=== PATIENT | female | born 2000 | race Caucasian/White ===

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

== ENCOUNTER → 2021-02-09 15:49 | Outpatient (POV) | payer OTHER, SELFPAY | PROVIDERS: Visit Provider Dermatology | DX: Z00.00 Encounter for general adult medical examination without abnormal findings (principal) ==

== ENCOUNTER 2021-02-12 08:57 | Emergency (ER) | payer OTHER, SELFPAY ==
[2021-02-12 09:01] VITALS: BP 142/73; PULSE 96; RESP 19; TEMP 36.6; O2SAT 99; BMI 28.0
--- NOTE | 2021-02-12 09:12 | HMH.EDUTC ---
[facility] [place] Clinical Impression: Sore throat (viral) Disposition: Home, Self-Care Condition on Discharge: Good Instructions: Sore Throat Additional Instructions: *Monitor Temp, Over the counter Motrin or Tylenol as directed/as needed Tylenol every 4 hours and Motrin every 6 hours (as long as your family doctor has told you that you can take it) for fever or pain. and straight to ER if unable to lower temp less than 101.0 after medication given *Warm salt water gargles may help to soothe the throat *Throat Lozenges *Warm fluids like tea with honey may help to soothe the throat *Sleep elevated *Humidifier/Vaporizer Your throat swab was sent for culture. Those results are typically sent to your primary care. Be sure to follow up in 2-3 days with your family doctor/primary care physician if no improvement so they can review those result and treat if necessary. If you don?t have a primary care doctor, I recommend you get one but in the mean time, you will have to return to a walk in clinic Follow up IMMEDIATELY for new or worsening symptoms or no Noticeable improvement over the next 48-72 hours. 911 for difficulty breathing or swallowing Referrals: Sandra Becker MD [Primary Care Provider] - As needed Forms: Work/School Release Time of Disposition: 09:18 Medical Decision Making - Kin Inquiry Pt receiving controlled substance: No Kin was queried for this patient: No Vital Signs: 02/12/21 09:01 02/12/21 09:13 Temperature 97.8 F 97.8 F Temperature Source Oral Pulse Rate 96 H Pulse Rate [Left] 96 H Respiratory Rate 19 19 Blood Pressure 142/73 H Blood Pressure [Right Arm] 142/73 H Blood Pressure Mean [Right Arm] 96 02 Sat by Pulse Oximetry 99 - Lab Data Lab results reviewed: Yes: I reviewed the patient's lab results. [facility] [place] - General Stated complaint: possible strep Time Seen by Provider: 02/12/21 09:12 Mode of Arrival: Ambulatory Source of Information: Patient Limitations: No Limitations Description of Symptoms (Recalled from Triage Doc. by RN): pt c/o a sore throat since last night. HEENT Symptoms (Recalled from RN notes): Yes (sore throat) Resp Symptoms (Recalled from RN notes): No Skin Symptoms (Recalled from RN notes): No MS Symptoms (Recalled from RN notes): No Functional Status (Recalled from RN notes): na - History of Present Illness Provider Complaint: Patient states that she started having sore throat last night States that feels like she may have strep throat so she came in to get tested denies any fever, chills or body aches - Related Data Home Medications Medication Instructions Recorded Confirmed levocetirizine 5 mg tablet 5 mg PO QHS 09/04/17 03/26/20 Montelukast Sodium [Montelukast 10 mg PO DAILY 09/06/17 03/26/20 10mg Tab] L norgest/E estradiol-E estrad 1 tab PO tab 03/05/20 03/26/20 0.15 mg-30 mcg (84)/10 mcg(7) tabs,3mos Previous Rx's Medication Instructions Recorded Cefdinir [Omnicef 300mg Capsule] 300 mg PO BID #20 cap 11/24/20 predniSONE [Prednisone 20mg 20 mg PO BID 4 Days #8 tab 11/24/20 Tab] Allergies Allergy/AdvReac Type Severity Reaction Status Date / Time No Known Allergies Allergy Verified 11/24/20 20:19 - Worker's Comp Is this a Worker's Comp case?: No [facility] History - Hepatitis A Screen Drug use history?: No High risk sexual behaviors?: No History of sexually transmitted infection?: No Currently employed?: No Childcare worker?: No Do you have indoor plumbing?: Yes Do you have electricity?: Yes Attestation statement:: This patient has been screened for Hepatitis A risk factors. I have reviewed the patient's past medical history: Yes Medical History: Reports:: Gastroesophageal Reflux Disease(GERD) Denies:: Cancer, Diabetes Mellitus Type 1, Diabetes Mellitus Type 2, MRSA, Seizures Other Medical History: Reports: Other. Denies: Blood Transfusion Reaction Laterality Cases: Bilateral: Myringotom
[2021-02-12 09:13] VITALS: BP 142/73; PULSE 96; RESP 19; TEMP 36.6
[2021-02-12 09:17] LABS: UTC Strep Screen (Rapid) Negative (Negative)
== END 2021-02-12 09:28 | disposition home or self-care (01) ==
PROVIDERS: Emergency Provider Nurse Practitioner; PCP Family Medicine
DX: J02.9 Acute pharyngitis, unspecified (principal); K21.9 Gastro-esophageal reflux disease without esophagitis
CPT/HCPCS: 87880; 99202; G0463

== ENCOUNTER → 2021-05-11 15:54 | Outpatient (POV) | payer OTHER, SELFPAY | PROVIDERS: Visit Provider Dermatology | DX: Z00.00 Encounter for general adult medical examination without abnormal findings (principal) ==

== ENCOUNTER 2021-11-11 18:20 | Emergency (ER) | payer OTHER, SELFPAY ==
[2021-11-11 18:25] VITALS: BP 132/93; PULSE 90; RESP 20; TEMP 36.9; O2SAT 100; BMI 31.0
--- NOTE | 2021-11-11 18:40 | HMH.EDUTC ---
[facility] [place] Disposition Clinical Impression: URI (upper respiratory infection) Qualifiers: URI type: unspecified URI Qualified Code(s): J06.9 - Acute upper respiratory infection, unspecified Disposition: Home, Self-Care Condition on Discharge: Good Instructions: Sore Throat, DI for Sinusitis Additional Instructions: *Monitor Temp, Over the counter Motrin or Tylenol as directed/as needed Tylenol every 4 hours and Motrin every 6 hours (as long as your family doctor has told you that you can take it) for fever or pain. and straight to ER if unable to lower temp less than 101.0 after medication given *Warm salt water gargles may help to soothe the throat *Throat Lozenges *Warm fluids like tea with honey may help to soothe the throat *Sleep elevated *Humidifier/Vaporizer *Flonase 2 sprays in each nostril daily but be aware that it may take 2-3 days before you notice improvement *Bromfed may cause drowsiness. Know how it effects you (your child) before driving, caring for small child, or sending your child to school. Not other antihistamines/allergy medications while taking bromfed Your throat swab was sent for culture. Those results are typically sent to your primary care. Be sure to follow up in 2-3 days with your family doctor/primary care physician if no improvement so they can review those result and treat if necessary. If you don?t have a primary care doctor, I recommend you get one but in the mean time, you will have to return to a walk in clinic Follow up IMMEDIATELY for new or worsening symptoms or no Noticeable improvement over the next 48-72 hours. 911 for difficulty breathing or swallowing You were tested for today for COVID19 your test result should be back in the next 24-48 hours, you may Check your results on the [facility] My health portal Make sure to take your Vitamins Vit. C Vit D and Zinc if you can take them Prescriptions: Fluticasone Propionate [Flonase 50mcg nasal spray 16gm] 1 spr NS DAILY #1 each [facility] methylPREDNISolone [Medrol 4mg tab] 4 mg PO DIRECTED #21 tab Transmission Status: [facility] Azithromycin [Z-Benny 250mg Tab] 250 mg PO DIRECTED #6 tab Transmission Status: Pending to [facility] Referrals: Sandra Becker MD [Primary Care Provider] - As needed Forms: Work/School Release Time of Disposition: 19:09 Medical Decision Making - Kin Inquiry Pt receiving controlled substance: No Kin was queried for this patient: No Vital Signs: 11/11/21 18:25 11/11/21 18:49 Temperature 98.4 F 98.4 F Temperature Source Oral Pulse Rate 90 Pulse Rate [Right Brachial] 90 Respiratory Rate 20 20 Blood Pressure 132/93 H Blood Pressure [Right Arm] 132/93 H Blood Pressure Mean [Right Arm] 106 Blood Pressure Source [Right Arm] Automatic Cuff Blood Pressure Position [Right Arm] Sitting 02 Sat by Pulse Oximetry 100 Oxygen Delivery Method Room Air - Lab Data Lab results reviewed: Yes: I reviewed the patient's lab results. Lab Results 11/11/21 18:41: Group A Strep Rapid Negative Orders (Tests/Meds): ORDERS Category Date Time Status Full Resp Panel w/COVID ([facility]) Routine Lab 11/11/21 18:41 Received Strep Screen Confirmation Stat Micro 11/11/21 18:41 Received Medical Decision Narrative: Patient denies [facility] [place] HPI - General Stated complaint: congestion and runny nose Time Seen by Provider: 11/11/21 18:41 Mode of Arrival: Ambulatory Source of Information: Patient Limitations: No Limitations Description of Symptoms (Recalled from Triage Doc. by RN): PATIENT C/O CONGESTION AND HEADACHE SINCE MONDAY HEENT Symptoms (Recalled from RN notes): Yes Resp Symptoms (Recalled from RN notes): No Skin Symptoms (Recalled from RN notes): No MS Symptoms (Recalled from RN notes): No Functional Status (Recalled from RN notes): WNL - History of Present Illness Provider Complaint: Patient states that
[2021-11-11 18:49] VITALS: BP 132/93; PULSE 90; RESP 20; TEMP 36.9; O2SAT 100
[2021-11-11 18:51] LABS: Adenovirus,PCR Not Detected (NotDetected); Bordetella Pertussis Not Detected (NotDetected); Chlamydophila Pneumoniae, PCR Not Detected (NotDetected); Coronavirus 19, PCR Not Detected (NotDetected); Coronavirus 229E Not Detected (NotDetected); Coronavirus NL63 Not Detected (NotDetected); Coronavirus OC43 Not Detected (NotDetected); Coronovirus HKU1,PCR Not Detected (NotDetected); Human Metapneumovirus Not Detected (NotDetected); Influenza A, PCR Not Detected (NotDetected); Influenza AH1, 2009 Not Detected (NotDetected); Influenza AH1, PCR Not Detected (NotDetected); Influenza AH3,PCR Not Detected (NotDetected); Influenza B, PCR Not Detected (NotDetected); Mycoplasma Pneumoniae, PCR Not Detected (NotDetected); Parainfluenza 1, PCR Not Detected (NotDetected); Parainfluenza 2, PCR Not Detected (NotDetected); Parainfluenza 3, PCR Not Detected (NotDetected); Parainfluenza 4, PCR Not Detected (NotDetected); Respiratory Syncytial Virus Not Detected (NotDetected)
[2021-11-11 19:01] LABS: Strep Scrn Group A (Rapid) Negative (Negative)
[2021-11-11 20:22] LABS: Rhinovirus/Enterovirus Detected (NotDetected)
== END 2021-11-11 19:41 | disposition home or self-care (01) ==
PROVIDERS: Emergency Provider Nurse Practitioner; PCP Family Medicine
DX: J06.9 Acute upper respiratory infection, unspecified (principal); B34.8 Other viral infections of unspecified site
CPT/HCPCS: 87430; 87581; 87632; 87798; 99212; C9803; G0463; U0003; U0005

== ENCOUNTER → 2022-06-17 14:57 | Outpatient (CLI) | payer OTHER, SELFPAY ==
--- NOTE | 2022-06-17 15:02 | CA_ITS ---
APPROVED REPORT EXAM: Comprehensive 2D, Doppler, and color-flow Echocardiogram Chief Informatics Officer: Maria Alejandra Valdovinos CRT Ht: 5 ft 9 in Wt: 170lbs BSA: 1.93 BP: 132/93 mmHg Indications: Chest Pain, Shortness of Breath, Fatigue, Peripheral Edema 2D Dimensions LVOT 2.08 cm (M/F) 1.5-2.5 LA Volume 33.60 mL LA Volume Index 17.10 mL/m2 (M/F) 16-34 M-Mode Dimensions RVDd 2.97 cm (0.9-2.6) LA Diam 3.45 cm (1.9-4.0) LVDd 4.06 cm (3.5-5.7) Ao Diam 3.01 cm (2.0-3.7) LVDs 2.81 cm (3.5-5.7) IVSd 1.01 cm (0.6-1.1) PWd 0.69 cm (0.6-1.1) EF (Teich) 58.90% FS 30.80% EDV (Teich) 72.50 mL TAPSE 2.33 (<1.7) ESV (Teich) 29.80 mL LV Diastology E Decel Time 323.00 (160-240 msec) E/A Ratio 1.38 MED E' 12.20 (< 7 cm/sec) MED A' 9.60 cm/s E'/MED E' Ratio 7.29 (>14) LAT E' 20.00 (<10 cm/sec) LAT A' 12.70 cm/s E/LAT E' Ratio 4.45 (>14) Aortic Valve AO Peak GR. 10.20 mmHg Mitral Valve MV A Velocity 64.00 (40-130 cm/s) E/A Ratio 1.38 MV Decel. Time 323.00 (160-240 ms) Pulmonary Valve PV Peak Velocity 178.00 (50-150 cm/s) Tricuspid Valve TR P. Velocity 240.00 cm/s RAP Estimate 10.00 mmHg RVSP 33.10 mmHg Left Ventricle Left atrium is normal size, left ventricle is normal size, there is preserved left ventricular systolic function, estimated ejection fraction 55% with no regional wall motion abnormality, diastolic parameters are within normal range. Right Ventricle Right atrium and right ventricle are normal size and contractility. Aortic Valve Aortic valve is grossly normal there is no aortic stenosis aortic insufficiency. Mitral Valve Mitral valve is grossly normal, there is no mitral regurgitation. Tricuspid Valve Tricuspid valve grossly normal, there is no tricuspid regurgitation. Pulmonic Valve Pulmonic valve is poorly visualized. Great Vessels Aortic root is normal size. Inferior vena cava is normal size with normal inspiratory collapse. Pericardium No significant pericardial effusion noted. Conclusion 1. Normal left ventricular size preserved left ventricular systolic function, estimated ejection fraction 55% with no regional wall motion abnormality, diastolic parameters are within normal range. 2. No significant pericardial effusion noted. 3. Inferior vena cava is normal size with normal inspiratory collapse. Electronically signed by : Diaz Marcelo MD 06/17/2022 16:03:04
== END ==
PROVIDERS: PCP Family Medicine; Visit Provider Family Medicine
DX: R53.82 Chronic fatigue, unspecified (principal)
CPT/HCPCS: 93306

== ENCOUNTER 2022-07-11 08:00 | Emergency (ER) | payer OTHER, SELFPAY ==
[2022-07-11 08:05] VITALS: BP 131/79; PULSE 82; RESP 20; TEMP 36.6; O2SAT 100; BMI 25.8
--- NOTE | 2022-07-11 08:15 | EXP.UTC ---
Discharge Plan Disposition Patient Disposition: Home, Self-Care Condition: Good Prescriptions Prescriptions: New penicillin V potassium 500 mg tablet 500 mg PO BID 10 Days Qty: 20 0RF No Action Radha 30 mg Tablet 180 mg PO DAILY drospirenone-ethinyl estradiol 3-0.03 mg tablet 1 tab PO DAILY Label Comments: TAKE 1 TABLET BY MOUTH ONCE DAILY Referrals Follow up/Referrals: Sandra Becker MD [Primary Care Provider] - See instructions Activity Restrictions/Add. Instructions Additional Instructions/Restrictions: *Monitor Temp, Over the counter Motrin or Tylenol as directed/as needed Tylenol every 4 hours and Motrin every 6 hours (as long as your family doctor has told you that you can take it) for fever or pain. and straight to ER if unable to lower temp less than 101.0 after medication given *Warm salt water gargles may help to soothe the throat *Throat Lozenges? *Warm fluids like tea with honey may help to soothe the throat? *Sleep elevated *Humidifier/Vaporizer Your throat swab was sent for culture. Those results are typically sent to your primary care. Be sure to follow up in 2-3 days with your family doctor/primary care physician if no improvement so they can review those result and treat if necessary. If you don?t have a primary care doctor, I recommend you get one but in the mean time, you will have to return to a walk in clinic Follow up IMMEDIATELY for new or worsening symptoms or no Noticeable improvement over the next 48-72 hours. 911 for difficulty breathing or swallowing Clinical Impressions Clinical Impression: Strep throat Instructions Patient Instructions: DI for Strep Throat, Strep Throat Discharge ED Provider: [place]ja Rae [facility] [place] Stated complaint: sore throat Mode of Arrival: Ambulatory Source of Information: Patient Limitations: No Limitations Time Seen by Provider: 07/11/22 08:15 Description of Symptoms (Recalled from Triage Doc. 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 sure she didnt have strep throat or something so she came in Related Data Home Medications Medication Instructions Recorded Confirmed drospirenone 3 mg-ethinyl 1 tab PO DAILY control 07/11/22 07/11/22 estradiol 0.03 mg tablet fexofenadine 30 mg tablet 180 mg PO DAILY Allergy symptoms 07/11/22 07/11/22 Previous Rx's Medication Instructions Recorded penicillin V potassium 500 mg 500 mg PO BID 10 days #20 tabs 07/11/22 tablet Allergies Allergy/AdvReac Type Severity Reaction Status Date / Time No Known Allergies Allergy Verified 11/24/20 20:19 Worker's Comp Is this a Worker's Comp case?: No PF[facility] [place] Disclaimer: The information contained in this section may have been updated after the patient was seen, as this information can be updated by other users. Social History Smoking Status: Never smoker alcohol intake: never counseling provided: none substance use type: denies use current occupational status: student Travel in the last 8 weeks: None housing: house ROS Obtained: Yes All systems reviewed & no additional complaints except as documented and Yes Systems reviewed as appropriate & no additional complaints except as documented Constitutional Constitutional: Reports system reviewed and no additional complaints, except as documented and Reports as per HPI ENT Ears, Nose, Mouth, and Throat: Reports system reviewed and no additional complaints, except as documented, Reports as per HPI and Reports sore throat [facility]
[2022-07-11 08:17] VITALS: BP 131/79; PULSE 82; RESP 20; TEMP 36.6; O2SAT 100
[2022-07-11 08:19] LABS: UTC Strep Screen (Rapid) Positive (Negative)
== END 2022-07-11 08:20 | disposition home or self-care (01) ==
PROVIDERS: Emergency Provider Nurse Practitioner; PCP Family Medicine
DX: J02.0 Streptococcal pharyngitis (principal)
CPT/HCPCS: 87880; 99212; 99213; G0463

== ENCOUNTER 2022-09-18 12:35 | Emergency (ER) | payer OTHER, SELFPAY ==
[2022-09-18 12:46] VITALS: BP 124/79; PULSE 75; RESP 18; TEMP 36.4; O2SAT 100; BMI 28.5
--- NOTE | 2022-09-18 13:28 | EXP.UTC ---
Discharge Plan Disposition Patient Disposition: Home, Self-Care Condition: Good Prescriptions Prescriptions: New azithromycin [azithromycin] 250 mg tablet 250 mg PO DIRECTED Qty: 6 0RF Rx Instructions: Take two (2) tablets on day #1, then one (1) tablet day #2 thru #5 fluticasone propionate [fluticasone propionate] 50 mcg/actuation spray,suspension 1 spray intranasal DAILY Qty: 9.9 0RF No Action Radha 30 mg Tablet 180 mg PO DAILY drospirenone-ethinyl estradiol 3-0.03 mg tablet 1 tab PO DAILY Label Comments: TAKE 1 TABLET BY MOUTH ONCE DAILY penicillin V potassium 500 mg tablet 500 mg PO BID 10 Days Qty: 20 0RF Referrals Follow up/Referrals: Sandra Becker MD [Primary Care Provider] - See instructions Activity Restrictions/Add. Instructions Additional Instructions/Restrictions: Start antibiotic patient to take as ordered for a full length of time even if you feel better. Sinus infections do not get better overnight. It may take 2-3 days to notice much improvement so be sure to use conservative measures as discussed for symptoms. Flonase 1 spray each nostril daily to help with nasal congestion, sinus and ear pressure/information Increase fluids Humidifier/vaporizer as needed Tylenol and ibuprofen as needed for fever or pain. If symptoms do not improve or get worse return or be seen in the ER Follow-up with primary care this week Clinical Impressions Clinical Impression: Sinusitis Instructions Patient Instructions: DI for Sinusitis Discharge ED Provider: Vania ([facility])Jason [facility] [place] H[place] General Stated complaint: Congestion Mode of Arrival: Ambulatory Source of Information: Patient Limitations: No Limitations Time Seen by Provider: 09/18/22 13:28 Description of Symptoms (Recalled from Triage Doc. by RN): pt c/o sinus pressure and congestion x4d HEENT Symptoms (Recalled from RN notes): Yes Resp Symptoms (Recalled from RN notes): No Skin Symptoms (Recalled from RN notes): No MS Symptoms (Recalled from RN notes): No Functional Status (Recalled from RN notes): wnl History of Present Illness Provider Complaint: 22 yr old female presents for sinus pressure, sinus pain, green nasal drainage and sore throat for 4 days and getting worse Related Data Home Medications Medication Instructions Recorded Confirmed drospirenone 3 mg-ethinyl 1 tab PO DAILY control 07/11/22 07/11/22 estradiol 0.03 mg tablet fexofenadine 30 mg tablet 180 mg PO DAILY Allergy symptoms 07/11/22 07/11/22 Previous Rx's Medication Instructions Recorded penicillin V potassium 500 mg 500 mg PO BID 10 days #20 tabs 07/11/22 tablet azithromycin 250 mg tablet 250 mg PO DIRECTED #6 tabs 09/18/22 fluticasone propionate 50 1 spray intranasal DAILY #9.9 mL 09/18/22 mcg/actuation nasal spray,suspension Allergies Allergy/AdvReac Type Severity Reaction Status Date / Time No Known Allergies Allergy Verified 09/18/22 12:49 Worker's Comp Is this a Worker's Comp case?: No [facility] Disclaimer: The information contained in this section may have been updated after the patient was seen, as this information can be updated by other users. Social History , [employer]) Smoking Status: Never smoker alcohol intake: never counseling provided: none substance use type: denies use current occupational status: student Travel in the last 8 weeks: None housing: house ROS Obtained: Yes All systems reviewed & no additional complaints except as documented Constitutional Constitutional: Reports system reviewed and no additional complaints, except as documented, Reports as per HPI and Reports headache(s) Eyes Eyes: Reports system reviewed and no additional complaints, except as documented ENT Ears, Nose, Mouth, and Throat: Reports system reviewed and no additional complaints, except as documented, Reports as per HPI, Reports f
[2022-09-18 13:42] VITALS: BP 124/79; PULSE 75; RESP 18; TEMP 36.4
== END 2022-09-18 13:43 | disposition home or self-care (01) ==
PROVIDERS: Emergency Provider Nurse Practitioner Family; PCP Family Medicine
DX: J01.90 Acute sinusitis, unspecified (principal); R07.0 Pain in throat
CPT/HCPCS: 99212; 99214; G0463

== ENCOUNTER 2023-02-15 08:01 | Emergency (ER) | payer OTHER, SELFPAY ==
[2023-02-15 08:10] VITALS: BP 139/71; PULSE 84; RESP 20; TEMP 36.6; O2SAT 97; BMI 31.1
--- NOTE | 2023-02-15 08:19 | EXP.UTC ---
Discharge Plan Disposition Patient Disposition: Home, Self-Care Condition: Good Prescriptions Prescriptions: New methylprednisolone [Medrol (Benny)] 4 mg tablets,dose pack See Rx Instructions .Route .COMPLEX 6 Days Qty: 21 0RF Rx Instructions: taper pack; amoxicillin-pot clavulanate 875-125 mg Tablet 1 tab PO Q12H Qty: 20 0RF fluticasone propionate [Flonase Allergy Relief] 50 mcg/actuation spray,suspension 1 - 2 spray intranasal DAILY Qty: 16 0RF Rx Instructions: administer into each nostril daily Referrals Follow up/Referrals: Sandra Becker MD [Primary Care Provider] - See instructions Activity Restrictions/Add. Instructions Additional Instructions/Restrictions: *Monitor Temp, Over the counter Motrin or Tylenol as directed/as needed Tylenol every 4 hours and Motrin every 6 hours (as long as your family doctor has told you that you can take it) for fever or pain. and straight to ER if unable to lower temp less than 101.0 after medication given *Warm salt water gargles may help to soothe the throat *Throat Lozenges? *Warm fluids like tea with honey may help to soothe the throat? *Sleep elevated *Humidifier/Vaporizer *Flonase 2 sprays in each nostril daily but be aware that it may take 2-3 days before you notice improvement Take medication as prescribed Follow up IMMEDIATELY for new or worsening symptoms or no Noticeable improvement over the next 48-72 hours. 911 for difficulty breathing or swallowing Clinical Impressions Clinical Impression: Sinusitis Instructions Patient Instructions: DI for Sinusitis, Sinusitis Discharge ED Provider: Nadja Rae [facility] [place] HPI General Stated complaint: congestion,runny nose Mode of Arrival: Ambulatory Source of Information: Patient Limitations: No Limitations Time Seen by Provider: 02/15/23 08:19 Description of Symptoms (Recalled from Triage Doc. by RN): PATIENT C/O SINUS CONGESTION X 2 WEEKS HEENT Symptoms (Recalled from RN notes): Yes Resp Symptoms (Recalled from RN notes): No Skin Symptoms (Recalled from RN notes): No MS Symptoms (Recalled from RN notes): No Functional Status (Recalled from RN notes): WNL History of Present Illness Provider Complaint: Patient states that she has been having sinus issues for 2 weeks States that she has been having sinus pain and pressure, and pressure behind her eyes States that she has taken several OTC medications but nothing has helped so today she came in thinking she may need some antibiotics for it Related Data Previous Rx's Medication Instructions Recorded amoxicillin 875 mg-potassium 1 tab PO Q12H #20 tabs 02/15/23 clavulanate 125 mg tablet fluticasone propionate 50 1 - 2 spray intranasal DAILY #16 02/15/23 mcg/actuation nasal grams spray,suspension (Flonase Allergy Relief) methylprednisolone 4 mg tablets in See Rx Instructions .Route 02/15/23 a dose pack (Medrol (Benny)) .COMPLEX 6 days #21 tabs Allergies Allergy/AdvReac Type Severity Reaction Status Date / Time No Known Allergies Allergy Verified 09/18/22 12:49 Worker's Comp Is this a Worker's Comp case?: No PFSH PFS Disclaimer: The information contained in this section may have been updated after the patient was seen, as this information can be updated by other users. 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
[2023-02-15 08:23] VITALS: BP 139/71; PULSE 84; RESP 20; TEMP 36.6; O2SAT 97
== END 2023-02-15 08:25 | disposition home or self-care (01) ==
PROVIDERS: Emergency Provider Nurse Practitioner; PCP Family Medicine
DX: J01.90 Acute sinusitis, unspecified (principal)
CPT/HCPCS: 99212; 99214; G0463

== ENCOUNTER 2023-07-01 05:33 | Emergency (ER) | payer OTHER, SELFPAY ==
[2023-07-01 05:34] VITALS: BP 124/75; PULSE 104; RESP 18; TEMP 36.8; O2SAT 98; BMI 32.5
[2023-07-01 06:00] VITALS: BP 113/73; PULSE 95; O2SAT 99
[2023-07-01] MEDS: LACTATED RINGERS 1000ML 1,000 ML 999 ML IV (06:06)
[2023-07-01] MEDS: ONDANSETRON 4MG/2ML VIAL 4 MG IV (06:06)
--- NOTE | 2023-07-01 06:17 | ED_ITS ---
Discharge Plan Disposition Patient Disposition: Home, Self-Care Prescriptions Prescriptions: New ondansetron HCl 4 mg tablet 4 mg PO Q8H PRN (Reason: nausea and vomiting) 5 Days Qty: 30 0RF No Action norelgestromin-ethin.estradiol [Zafemy] 150-35 mcg/24 hr patch weekly 1 patch transdermal WEEKLY Patient Comments: DIRECTED TRANSDERMALLY ONE PATCH PER WEEK FOR 3 WEEKS THEN 1 WEEK OFF Referrals Follow up/Referrals: Sandra Becker MD [Primary Care Provider] - See instructions Activity Restrictions/Add. Instructions Additional Instructions/Restrictions: Please follow-up with your primary care provider. Please return to the emergency department if you develop any new or worsening symptoms or become concerned for your health. Please take Zofran as needed for nausea and vomiting. Clinical Impressions Clinical Impression: Vomiting Qualifiers: Vomiting type: unspecified Nausea presence: unspecified Qualified Code(s): R11.10 - Vomiting, unspecified Instructions Patient Instructions: DI for Diarrhea and Traveler's Diarrhea -- Adult, DI for Diarrhea and Traveler's Diarrhea -- Child, DI for Nausea -- Adult, DI for Nausea -- Child Discharge ED Provider: Mike Pereira General Adult HPI General Chief complaint: Nausea/Vomiting/Diarrhea Stated complaint: vomiting, stomach pain Time Seen by Provider: 07/01/23 06:01 Mode of Arrival: Ambulatory Source of Information: Patient and Parent(s) Limitations: No Limitations Description of Symptoms (Recalled from ER Triage Doc. by RN): Patient and mother state that patient has been vomiting since 1900 last night. No ABD pain or other symptoms. History of Present Illness HPI narrative: 22-year-old female with no reported past medical history presents with nausea vomiting since last night. She reports that she felt well yesterday and has not been sick recently. She denies any fever. She denies any abdominal pain. She reports that she has having normal bowel movements. She reports that she has a control patch and is currently on her menstrual cycle and states there is no way she could be . Related Data Home Medications Medication Instructions Recorded Confirmed norelgestromin 150 mcg-e.estradiol 1 patch transdermal WEEKLY 07/01/23 07/01/23 35 mcg/24 hr weekly transderm patch (Zafemy) Previous Rx's Medication Instructions Recorded ondansetron HCl 4 mg tablet 4 mg PO Q8H PRN nausea and 07/01/23 vomiting 5 days #30 tabs Allergies Allergy/AdvReac Type Severity Reaction Status Date / Time No Known Allergies Allergy Verified 09/18/22 12:49 [facility] Dis[facility]: The information contained in this section may have been updated after the patient was seen, as this information can be updated by other users. Social History (Reviewed 09/18/22 @ 13:31 by Jason Caro ([facility]), [employer]) Smoking Status: Never smoker alcohol intake: never counseling provided: none substance use type: denies use current occupational status: student Travel in the last 8 weeks: None housing: house ROS Obtained: Yes All systems reviewed & no additional complaints except as documented Physical Exam General General appearance: alert and in no apparent distress Head Head exam: atraumatic and normocephalic Eye Eye exam: Present normal appearance, PERRL and EOMI ENT ENT exam: Present normal oropharynx and normal external ear exam Neck Neck exam: Present normal inspection and full ROM Chest Chest inspection: Present normal inspection and symmetric chest wall rise; Absent tenderness Respiratory Respiratory exam: Present normal lung sounds bilaterally; Absent respiratory distress Cardiovascular Cardiovascular exam: Present regular rate and normal rhythm Abdominal Exam Abdominal exam: Present soft; Absent distention, tenderness or guarding Extremities Exam Extremities exam: Present normal inspection; Absent edema or joint swelling Back Exam Back exam: Present normal inspection; Absent tenderness Neurological Exam Neurological exam: Present alert and oriented X3; Absent motor sensory deficit Psychiatric Psychiatric exam: Present normal affect and normal mood Skin Skin exam: Present warm, dry and normal color Lymphatic Lymphatic Findings: no adenopathy Medical Decision Making Medical Records Medical records reviewed: Yes I reviewed the patient's medical records. Kin Inquiry Pt receiving controlled substance: No Kin was queried for this patient: No Vital Signs: 07/01/23 05:34 07/01/23 06:00 Temperature 98.2 F Temperature Source Oral Pulse Rate 95 H Pulse Rate [Radial] 104 H Respiratory Rate 18 Blood Pressure 113/73 Blood Pressure [Left Arm] 124/75 Blood Pressure Mean [Left Arm] 91 Blood Pressure Source [Left Arm] Automatic Cuff Blood Pressure Position [Left Arm] Sitting 02 Sat by Pulse Oximetry 98 99 Oxygen Delivery Method Room Air Room Air Lab Data Lab results reviewed: Yes I reviewed the patient's lab results. Orders (Tests/Meds): ED MEDICATIONS Generic Name Dose Route Start Last Admin Trade Name Freq PRN Reason Stop Dose Admin Lactated Ringer's 1,000 mls @ 999 mls/hr 07/01/23 06:15 07/01/23 06:06 Lactated Ringer's 1000 Ml Bag IV 07/01/23 07:15 999 mls/hr .Q1H1M NORRIS Administration Discontinued Medications Generic Name Dose Route Start Last Admin Trade Name Freq PRN Reason Stop Dose Admin Ondansetron HCl 4 mg 07/01/23 06:01 07/01/23 06:06 Ondansetron 4mg/2ml Vial IV 07/01/23 06:02 4 mg ONCE ONE Administration Medical Decision Narrative: 22-year-old female with no significant past medical history presents with vomiting since yesterday.. History was obtained via conversation with patient. On arrival, patient is [afebrile, hemodynamically stable, satting appropriately, alert, oriented x4, GCS 15], moving all extremities spontaneously. Full physical exam performed and significant for benign abdominal exam without tenderness. Differential includes but is not limited to gastroenteritis, food poisoning, influenza, dehydration, pancreatitis, biliary pathology, . Patient reports that she is currently on her menstrual cycle, is on control and there is no chance she could be . Patient was given 4 mg of IV Zofran and 1 L fluid bolus for symptomatic management and correction of underlying abnormalities. Blood work and CT imaging was considered, but deemed unnecessary due to benign exam, brief history of vomiting. After IV fluids and Zofran patient reported symptomatic improvement. She is able to tolerate fluids in ED and was discharged in stable condition with prescription for zofran. Procedures Risk/Benefits of Procedure(s) Were Explained: Yes Critical Care Critical Care Time Critical Care Time: No
[2023-07-01 06:50] VITALS: BP 108/72; PULSE 75; RESP 16; TEMP 36.8; O2SAT 100
== END 2023-07-01 06:52 | disposition home or self-care (01) ==
PROVIDERS: Emergency Provider Emergency Medicine; PCP Family Medicine
DX: R11.2 Nausea with vomiting, unspecified (principal)
CPT/HCPCS: 96361; 96374; 99284; J2405

== ENCOUNTER 2023-07-28 07:59 | Emergency (ER) | payer OTHER, SELFPAY ==
[2023-07-28 08:15] VITALS: BP 119/92; PULSE 102; RESP 19; TEMP 37.1; O2SAT 97; BMI 34.2
[2023-07-28 08:45] LABS: UTC Strep Screen (Rapid) Negative (Negative)
--- NOTE | 2023-07-28 08:51 | ED_ITS ---
Discharge Plan Disposition Patient Disposition: Home, Self-Care Condition: Good Prescriptions Prescriptions: New methylprednisolone [Medrol (Benny)] 4 mg tablets,dose pack See Rx Instructions .Route .COMPLEX 6 Days Qty: 21 0RF Rx Instructions: taper pack; amoxicillin-pot clavulanate 875-125 mg Tablet 1 tab PO Q12H 10 Days Qty: 20 0RF guaifenesin [Mucinex] 600 mg tablet extended release 12hr 1,200 mg PO BID PRN (Reason: cough) Qty: 20 0RF No Action norelgestromin-ethin.estradiol [Zafemy] 150-35 mcg/24 hr patch weekly 1 patch transdermal WEEKLY Patient Comments: DIRECTED TRANSDERMALLY ONE PATCH PER WEEK FOR 3 WEEKS THEN 1 WEEK OFF ondansetron HCl 4 mg tablet 4 mg PO Q8H PRN (Reason: nausea and vomiting) 5 Days Qty: 30 0RF Referrals Follow up/Referrals: Sandra Becker MD [Primary Care Provider] - See instructions Activity Restrictions/Add. Instructions Additional Instructions/Restrictions: *Monitor Temp, Over the counter Motrin or Tylenol as directed/as needed Tylenol every 4 hours and Motrin every 6 hours (as long as your family doctor has told you that you can take it) for fever or pain. and straight to ER if unable to lower temp less than 101.0 after medication given *Warm salt water gargles may help to soothe the throat *Throat Lozenges? *Warm fluids like tea with honey may help to soothe the throat? *Sleep elevated *Humidifier/Vaporizer Your throat swab was sent for culture. Those results are typically sent to your primary care. Be sure to follow up in 2-3 days with your family doctor/ primary care physician if no improvement so they can review those result and treat if necessary. If you don?t have a primary care doctor, I recommend you get one but in the mean time, you will have to return to a walk in clinic Follow up IMMEDIATELY for new or worsening symptoms or no Noticeable improvement over the next 48-72 hours. 911 for difficulty breathing or swallowing Clinical Impressions Clinical Impression: Sinusitis Instructions Patient Instructions: DI for Sinusitis, Sinusitis Discharge ED Provider: Nadja Rae [facility] [place] HPI General Stated complaint: congestion, pain in face Mode of Arrival: Ambulatory Source of Information: Patient Limitations: No Limitations Time Seen by Provider: 07/28/23 08:51 Description of Symptoms (Recalled from Triage Doc. by RN): PATIENT C/O SORE THROAT AND HEAD/CHEST CONGESTION X 3 DAYS HEENT Symptoms (Recalled from RN notes): Yes Resp Symptoms (Recalled from RN notes): No Skin Symptoms (Recalled from RN notes): No MS Symptoms (Recalled from RN notes): No Functional Status (Recalled from RN notes): WNL History of Present Illness Provider Complaint: Patient states that she has been having sinus pain and p ressure with drainage in the back of her throat that is making her throat feel sore and irritated and feels like it is moving into her chest and she is starting to cough up some thick mucous States that for the last 3 days it has got worse Related Data Home Medications Medication Instructions Recorded Confirmed norelgestromin 150 mcg-e.estradiol 1 patch transdermal WEEKLY 07/01/23 07/01/23 35 mcg/24 hr weekly transderm patch (Zafemy) Previous Rx's Medication Instructions Recorded ondansetron HCl 4 mg tablet 4 mg PO Q8H PRN nausea and 07/01/23 vomiting 5 days #30 tabs amoxicillin 875 mg-potassium 1 tab PO Q12H 10 days #20 tabs 07/28/23 clavulanate 125 mg tablet guaifenesin 600 mg tablet, 1,200 mg (2 x 600 mg) PO BID PRN 07/28/23 extended release 12 hr (Mucinex) cough #20 tabs methylprednisolone 4 mg tablets in See Rx Instructions .Route 07/28/23 a dose pack (Medrol (Benny)) .COMPLEX 6 days #21 tabs Allergies Allergy/AdvReac Type Severity Reaction Status Date / Time No Known Allergies Allergy Verified 09/18/22 12:49 Worker's Comp Is this a Worker's Comp case?: No [facility] Disclaimer: The information contained in this section may have been updated after the patient was seen, as this information can be updated by other users. 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 alcohol intake: never counseling provided: none substance use type: denies use current occupational status: student Travel in the last 8 weeks: None housing: house ROS Obtained: Yes All systems reviewed & no additional complaints except as documented and Yes Systems reviewed as appropriate & no additional complaints except as documented Constitutional Constitutional: Reports system reviewed and no additional complaints, except as documented and Reports as per HPI Eyes Eyes: Reports system reviewed and no additional complaints, except as documented and Reports as per HPI ENT Ears, Nose, Mouth, and Throat: Reports system reviewed and no additional complaints, except as documented, Reports as per HPI, Reports sinus pain, Reports sinus pressure and Reports sore throat Cardiovascular Cardiovascular: Reports system reviewed and no additional complaints, except as documented and Reports as per HPI Respiratory Respiratory: Reports system reviewed and no additional complaints, except as documented, Reports as per HPI, Reports chest congestion and Reports cough Gastrointestinal Gastrointestingal: Reports system reviewed and no additional complaints, except as documented and as per HPI Physical Exam General General appearance: alert and in no apparent distress ENT ENT exam: Present mucous membranes moist Expanded ENT Exam Nose exam: Present sinus tenderness Throat exam: Present other (Pharyngeal erythema noted with PND) Respiratory Respiratory exam: Present normal lung sounds bilaterally; Absent respiratory distress or wheezes Cardiovascular Cardiovascular exam: Present regular rate, normal rhythm and normal heart sounds Abdominal Exam Abdominal exam: Present soft and normal bowel sounds; Absent distention or tenderness Neurological Exam Neurological exam: Present alert, oriented X3 and normal gait Medical Decision Making Kin Inquiry Pt receiving controlled substance: No Kin was queried for this patient: No Vital Signs: 07/28/23 08:15 Temperature 98.8 F Temperature Source Oral Pulse Rate [Left Brachial] 102 H Respiratory Rate 19 Blood Pressure [Left Arm] 119/92 H Blood Pressure Mean [Left Arm] 101 Blood Pressure Source [Left Arm] Automatic Cuff Blood Pressure Position [Left Arm] Sitting 02 Sat by Pulse Oximetry 97 Oxygen Delivery Method Room Air Lab Data Lab results reviewed: Yes I reviewed the patient's lab results. Lab Results 07/28/23 08:39: Strep Scn Rapid Clinic Negative Orders (Tests/Meds): ORDERS Category Date Time Status Strep Screen Confirmation Stat Micro 07/28/23 08:39 Received
[2023-07-28 09:08] VITALS: BP 119/92; PULSE 102; RESP 19; TEMP 37.1; O2SAT 97
== END 2023-07-28 09:10 | disposition home or self-care (01) ==
PROVIDERS: Emergency Provider Nurse Practitioner; PCP Family Medicine
DX: J01.90 Acute sinusitis, unspecified (principal); J02.9 Acute pharyngitis, unspecified; R05.9 Cough, unspecified
CPT/HCPCS: 87880; 99212; 99214; G0463

== ENCOUNTER 2023-11-22 19:33 | Emergency (ER) | payer OTHER, SELFPAY ==
[2023-11-22 19:35] VITALS: BP 141/83; PULSE 108; RESP 20; TEMP 36.6; O2SAT 97; BMI 29.5
--- NOTE | 2023-11-22 19:48 | HMH.EDGENADL ---
Discharge Plan Disposition Patient Disposition: Home, Self-Care Chief Complaint: Fever Prescriptions Prescriptions: No Action methylprednisolone [Medrol (Benny)] 4 mg tablets,dose pack See Rx Instructions .Route .COMPLEX 6 Days Qty: 21 0RF Rx Instructions: taper pack; amoxicillin-pot clavulanate 875-125 mg Tablet 1 tab PO Q12H 10 Days Qty: 20 0RF guaifenesin [Mucinex] 600 mg tablet extended release 12hr 1,200 mg PO BID PRN (Reason: cough) Qty: 20 0RF norelgestromin-ethin.estradiol [Zafemy] 150-35 mcg/24 hr patch weekly 1 patch transdermal WEEKLY Patient Comments: DIRECTED TRANSDERMALLY ONE PATCH PER WEEK FOR 3 WEEKS THEN 1 WEEK OFF ondansetron HCl 4 mg tablet 4 mg PO Q8H PRN (Reason: nausea and vomiting) 5 Days Qty: 30 0RF Referrals Follow up/Referrals: Sandra Becker MD [Primary Care Provider] - See instructions Activity Restrictions/Add. Instructions Additional Instructions/Restrictions: Call your family doctor to establish care for this visit to the emergency department and schedule follow-up within 48 hours to ensure improvement. If you have any worsening of your condition or any other concerning signs or symptoms, return to the emergency department or your primary care doctor for further evaluation. Take Tylenol 1000 mg every 6 hours (4 times daily) and ibuprofen 400 mg every 6 hours (4 times daily) as needed with food and water to prevent GI upset and kidney damage. You will be contacted if Lyme disease labs come back positive. Clinical Impressions Clinical Impression: Cough, Headache Discharge ED Provider: Yash Morley General Adult HPI General Chief complaint: Fever Stated complaint: fever, GOMEZ, alexandra Time Seen by Provider: 11/22/23 19:35 Mode of Arrival: Ambulatory Source of Information: Patient Limitations: No Limitations Description of Symptoms (Recalled from ER Triage Doc. by RN): pt began running a fever today with a headache and then noticed a higher than normal heart rate, pt is alox4 and appropriate upon triage History of Present Illness HPI narrative: Please note that above description of symptoms, in this electronic medical record under categorization of recalled from ER triage doctor by RN are reflective of an initial nursing assessment, however, is not reflective of my full history and physical exam that was personally taken and clarified. Consequentially, this preceding description of symptoms, which may include the patient's categorized chief complaint in the EMR, do not reflect my personal clinical impression, and the ultimate description of history of present illness and patient stated complaints should be deferred to this section of the note. Unless stated otherwise or congruent with this section of the note, additional signs, symptoms, or incongruence should be interpreted as inaccurate with my clinical impression. Related Data Home Medications Medication Instructions Recorded Confirmed norelgestromin 150 mcg-e.estradiol 1 patch transdermal WEEKLY 07/01/23 07/01/23 35 mcg/24 hr weekly transderm patch (Zafemy) Previous Rx's Medication Instructions Recorded ondansetron HCl 4 mg tablet 4 mg PO Q8H PRN nausea and 07/01/23 vomiting 5 days #30 tabs amoxicillin 875 mg-potassium 1 tab PO Q12H 10 days #20 tabs 07/28/23 clavulanate 125 mg tablet guaifenesin 600 mg tablet, 1,200 mg (2 x 600 mg) PO BID PRN 07/28/23 extended release 12 hr (Mucinex) cough #20 tabs methylprednisolone 4 mg tablets in See Rx Instructions .Route 07/28/23 a dose pack (Medrol (Benny)) .COMPLEX 6 days #21 tabs Allergies Allergy/AdvReac Type Severity Reaction Status Date / Time No Known Allergies Allergy Verified 09/18/22 12:49 [facility] Disclaimer: The information contained in this section may have been updated after the patient was seen, as this information can be updated by other users. Surgical History (Updated 07/28/23 @ 08:38 by Becki Chavez RN) History of tympanostomy tube placement History of cholecystectomy Social History , [employer]) Smoking Status: Never smoker alcohol intake: never counseling provided: none substance use type: denies use current occupational status: student Travel in the last 8 weeks: None housing: house ROS Obtained: Yes All systems reviewed & no additional complaints except as documented Physical Exam General General appearance: alert, in no apparent distress and obese Head Head exam: atraumatic and normocephalic Eye Eye exam: Present normal appearance, PERRL and EOMI Neck Neck exam: Present normal inspection, full ROM and trachea midline Respiratory Respiratory exam: Present normal lung sounds bilaterally and other (Intermittently coughing); Absent respiratory distress, wheezes, stridor, accessory muscle use or prolonged expiratory phase Cardiovascular Cardiovascular exam: Present normal rhythm, tachycardia and other (Pulses equal symmetric in upper and lower extremities) Abdominal Exam Abdominal exam: Present soft; Absent distention, tenderness or pulsatile mass Extremities Exam Extremities exam: Absent edema Neurological Exam Neurological exam: Present alert, oriented X3 and CN II-XII intact; Absent motor sensory deficit Skin Skin exam: Present warm and dry; Absent diaphoresis or erythema Medical Decision Making Medical Records Medical records reviewed: Yes I reviewed the patient's medical records. Kin Inquiry Pt receiving controlled substance: No Kin was queried for this patient: No Vital Signs: 11/22/23 19:35 11/22/23 19:48 11/22/23 20:16 Temperature 97.8 F Temperature Source Oral Oral Pulse Rate 85 Pulse Rate [Right Radial] 108 H Respiratory Rate 20 Blood Pressure 120/74 Blood Pressure [Right Arm] 141/83 H Blood Pressure Mean 89 Blood Pressure Mean [Right Arm] 102 02 Sat by Pulse Oximetry 97 98 Oxygen Delivery Method Room Air Room Air 11/22/23 20:30 11/22/23 21:00 Temperature Temperature Source Pulse Rate 66 66 Pulse Rate [Right Radial] Respiratory Rate Blood Pressure 113/84 116/52 L Blood Pressure [Right Arm] Blood Pressure Mean 90 75 Blood Pressure Mean [Right Arm] 02 Sat by Pulse Oximetry 98 96 Oxygen Delivery Method Room Air Room Air Lab Data Lab Results 11/22/23 20:00: WBC 7.3, RBC 4.55, Hgb 13.5, Hct 41.1, MCV 90.4, MCH 29.7, MCHC 32.8, RDW 13.2, Plt Count 224, MPV 7.7, Neut % (Auto) 84.9 H, Lymph % (Auto) 8.7 L, Pitkin % (Auto) 4.0, Eos % (Auto) 1.5, Baso % (Auto) 0.7, Neut # (Auto) 6.2, Lymph # (Auto) 0.6 L, Pitkin # (Auto) 0.3, Eos # (Auto) 0.1, Baso # (Auto) 0.1, Sodium 135 L, Potassium 3.9, Chloride 107, Carbon Dioxide 25, Anion Gap 6.9, BUN 9, Creatinine 0.60, Estimated Creat Clear 211, Estimated GFR 125, Est GFR ( Amer) 151, Glucose 130 H, Calcium 8.8, Magnesium 1.8, Total Bilirubin 0.5, AST 38 H, ALT 39, Alkaline Phosphatase 89, Total Protein 7.2, Albumin 3.9, Globulin 3.3 H, Albumin/Globulin Ratio 1.2, HCG, Quant < 2 11/22/23 20:00 11/22/23 20:00 Orders (Tests/Meds): ED MEDICATIONS Discontinued Medications Generic Name Dose Route Start Last Admin Trade Name Shana PRN Reason Stop Dose Admin Acetaminophen 1,000 mg 11/22/23 19:44 11/22/23 20:08 Acetaminophen 1,000mg/100ml Vial IV 11/22/23 19:45 1,000 mg ONCE ONE Administration Dexamethasone Sodium Phosphate 10 mg 11/22/23 19:47 11/22/23 20:08 Dexamethasone 4mg/Ml 1ml Vial IV 11/22/23 19:48 10 mg ONCE ONE Administration Diphenhydramine HCl 25 mg 11/22/23 19:44 11/22/23 20:09 Diphenhydramine 50mg/Ml Vial IV 11/22/23 19:45 25 mg ONCE ONE Administration Lactated Ringer's 1,000 mls @ 999 mls/hr 11/22/23 19:44 11/22/23 20:07 Lactated Ringer's 1000 Ml Bag IV 11/22/23 20:44 999 mls/hr .Q1H1M ONE Administration Ketorolac Tromethamine 15 mg 11/22/23 19:44 11/22/23 20:08 Ketorolac 30mg/Ml Vial IV 11/22/23 19:45 15 mg ONCE ONE Administration Prochlorperazine Edisylate 10 mg 11/22/23 19:44 11/22/23 20:08 Prochlorperazine 10mg/2ml Vial IV 11/22/23 19:45 10 mg ONCE ONE Administration ORDERS Category Date Time Status CBC w/Auto Diff [Complete Blood Count Auto Diff] Stat Lab 11/22/23 20:00 Completed CMP [Comprehensive Metabolic Panel] Stat Lab 11/22/23 20:00 Completed HCG,Quantitative Stat Lab 11/22/23 20:00 Completed MAG [Magnesium] Stat Lab 11/22/23 20:00 Completed Medical Decision Narrative: 23-year-old female no relevant medical history presenting with headache. Patient states headache started yesterday. She gets headaches infrequently, this 1 just has not let off. Has taken Tylenol and Motrin today, she states that it helped briefly, but did not completely relieve the pain. States that she has had a temperature of Tmax 100 ?F, as well as cough productive of yellow sputum. She also works at a daycare. Denies nausea vomiting, diarrhea, vision changes, double vision, balance issues, weakness, facial swelling, throat or ear pain, neck pain or stiffness, any other concerns. History was obtained via conversation with patient. On arrival, patient hemodynamically stable, alert, oriented x4, appropriate, GCS 15, moving all extremities spontaneously, pupils equal and reactive to light. Full physical exam performed and significant for very well-appearing female no acute distress. Mildly tachycardic. Lungs are clear to auscultation, cardiac exam otherwise normal. Patient cranial nerves intact and nonfocal. Differential includes viral syndrome, tension headache, migraine, dehydration, meningitis, among others. Patient given acetaminophen, Toradol, diphenhydramine, prochlorperazine, dexamethasone, LR bolus for symptomatic management. Labs remarkable for normal white count, but neutrophilic predominance. Mild hyponatremia 135, otherwise normal electrolytes and AST mildly elevated at 38. hCG negative. I feel this is more likely viral than anything else. On reevaluation, patient states she has no headache, feeling much better. Conversation about ticks was had, patient has no tick exposure outdoor exposure at all. This makes tickborne illness less likely. Because patient asymptomatic after conservative medical management, I feel this is also less likely due to meningitis, but return precautions were given and patient voiced understanding. Because patient at baseline without signs or symptoms of clinical decompensation, deemed appropriate for discharge. Results were relayed to patient who voiced understanding and were agreeable to outpatient management and follow up. I discussed my clinical impression with patient and answered all questions. At this time, the evidence for any other entities in the differential is insufficient to warrant any further testing or ED observation. This was explained as well. Advisory was given that persistent or worsening symptoms require further evaluation. I confirmed the understanding of this discussion. Industrial Engineering disclaimer Much of this encounter note is an electronic motorboat mechanic inboard/outboard spoken language to printed text. Electronic motorboat mechanic inboard/outboard of the spoken language may permit errors. Although I have reviewed the note, some errors may still exist. Critical Care Critical Care Time Critical Care Time: No
[2023-11-22] MEDS: LACTATED RINGERS 1000ML 1,000 ML 999 ML IV (20:07)
[2023-11-22] MEDS: KETOROLAC 30MG/ML VIAL 15 MG IV (20:08)
[2023-11-22] MEDS: DEXAMETHASONE 4MG/ML 1ML VIAL 10 MG IV (20:08)
[2023-11-22] MEDS: PROCHLORPERAZINE 10MG/2ML VIAL 10 MG IV (20:08)
[2023-11-22] MEDS: ACETAMINOPHEN 1,000MG/100ML VIAL 1000 MG IV (20:08)
[2023-11-22] MEDS: diphenhydrAMINE 50MG/ML VIAL 25 MG IV (20:09)
[2023-11-22 20:10] LABS: Basophils # 0.1 K/mm3 (0-0.2); Basophils % 0.7 % (0.1-2.0); Eosinophils # 0.1 K/mm3 (0.0-0.4); Eosinophils % 1.5 % (0.1-12.0); Hematocrit 41.1 % (37.0-47.0); Hemoglobin 13.5 g/dL (12.2-16.2); Lymphocytes # 0.6 K/mm3 (0.7-4.5); Lymphocytes % 8.7 % (10-50); Mean Corpuscular HGB Conc 32.8 g/dL (31.8-35.4); Mean Corpuscular Hemoglobin 29.7 pg (27.0-31.2); Mean Corpuscular Volume 90.4 fl (81-99); Mean Platelet Volume 7.7 fl (7.4-10.4); Monocytes # 0.3 K/mm3 (0.1-1.0); Neutrophils # 6.2 K/mm3 (1.8-7.8); Platelet Count 224 K/mm3 (142-424); Red Blood Count 4.55 M/mm3 (4.20-5.40); Red Cell Distribution Width 13.2 % (11.5-17.5); White Blood Count 7.3 K/mm3 (4.8-10.8)
[2023-11-22 20:11] LABS: Neutrophils % 84.9 % (37.0-80.0)
[2023-11-22 20:13] LABS: Chloride 107 mmol/L (98-107); Sodium 135 mmol/L (136-145)
[2023-11-22 20:14] LABS: Potassium 3.9 mmoL/L (3.5-5.1)
[2023-11-22 20:16] VITALS: BP 120/74; PULSE 85; O2SAT 98
[2023-11-22 20:16] LABS: Alanine Aminotransferase 39 U/L (12-78); Albumin Level 3.9 g/dl (3.5-5.0); Albumin/Globulin Ratio 1.2 (1.1-1.8); Alkaline Phosphatase 89 U/L (38-126); Anion Gap 6.9 mEq/L (5-15); Aspartate Amino Transferase 38 U/L (14-36); Bilirubin,Total 0.5 mg/dl (0.2-1.3); Blood Urea Nitrogen 9 mg/dl (7-17); Carbon Dioxide 25 mmol/L (22.0-30.0); Creatinine Clearance Estimated 211 mL/min (50-200); Estimated Glomerular Filt Rate 125 ml/min (>60); GFR (African American) 151 ML/MIN (>60); Globulin 3.3 g/dL (1.3-3.2); Glucose 130 mg/dl (74-100); Total Protein,Serum 7.2 g/dl (6.3-8.2)
[2023-11-22 20:17] LABS: Calcium 8.8 mg/dl (8.4-10.2); Magnesium 1.8 mg/dl (1.6-2.3)
[2023-11-22 20:30] VITALS: BP 113/84; PULSE 66; O2SAT 98
[2023-11-22 20:34] LABS: HCG,Quantitative < 2 mIU/ml (0-5.42)
[2023-11-22 21:00] VITALS: BP 116/52; PULSE 66; O2SAT 96
[2023-11-22 21:21] VITALS: BP 116/52; PULSE 70; RESP 14; TEMP 36.8; O2SAT 96
[2023-11-24 09:13] LABS: Lyme Ab CIA Negative (Negative)
== END 2023-11-22 21:23 | disposition home or self-care (01) ==
PROVIDERS: Emergency Provider Emergency Medicine; PCP Family Medicine
DX: R51.9 Headache, unspecified (principal); R05.9 Cough, unspecified; R50.9 Fever, unspecified
CPT/HCPCS: 80053; 83735; 84702; 85025; 96361; 96374; 96375; 99284; J0131; J1100; J1885; J7120

== ENCOUNTER 2024-05-14 16:00 | Outpatient (RCR) | payer OTHER, SELFPAY ==
--- NOTE | 2024-04-08 16:10 | HMH.PTOPWND ---
Rehab Outpt Wound Evaluation Rehab OP Wound Evaluation Start: 04/08/24 15:46 Freq: Status: Active Protocol: Document 04/08/24 15:46 LIZZY (Rec: 04/08/24 16:09 PHORSABINO [id number]) E-signed By Josep Bowie, PT Subjective/History History History This is the initial PT eval for Sarahy Denton, 23 yowf who presents with c/o increased B LE edema x ~ 5-6 yrs. She reports increased swelling that is worse at the end of the day and causing increasingly worse pain intermittently. She reports feeling her feet don't usually swell, but mostly her calves. She reports her clothes feel tighter when she is swollen and her legs are more tender to touch on B LE. She reports no significant PMH except past CCY. Subjective Subjective Currently 0/10 pain, at worst pain is 6/10 in B LE. 1/4 TTP noted at this time. No pitting edema, but increased fibrosis throughout B lower legs. 7/9 score on beighton scale for hyperflexibility. Mild Ankle cuffing present at this time. Palpable grainy nodules noted with light palpation of the skin. New diagnosis of cancer in past 12 No months? Lymphedema Eval Classification of Lymphedema Secondary Lymphedema Yes: lipolymphedema Stemmer's sign Stemmer's Sign no Stage of Lymphedema Lymphedema stages Stage II (Pitting edema, increased fibrosis w/ decreased pitting) Skin Changes Dry Skin Yes Skin Folds Yes Redness Yes Discoloration of Skin Yes Other Changes Yes Pain Scale Pain Scale (0-10) 6 Affected Extremities Areas Affected by Lymphedema/Edema Right Lower Extremity,Left Lower Extremity Lower Extremity Measurements Right MTP Measurement (cm) 23.4 Heel Measurement (cm) 33.8 10 cm Proximal to Lateral Malleoli 37.4 Measurement (cm) 20 cm Proximal to Lateral Malleoli 47.5 Measurement (cm) 30 cm Proximal to Lateral Malleoli 55.4 Measurement (cm) 40 cm Proximal to Lateral Malleoli 51.2 Measurement (cm) 50 cm Proximal to Lateral Malleoli 0 Measurement (cm) 60 cm Proximal to Lateral Malleoli 0 Measurement (cm) Lower Extremity Measurement Total (cm) 248.7 Left MTP Measurement (cm) 23.5 Heel Measurement (cm) 33.2 10 cm Proximal to Lateral Malleoli 36.2 Measurement (cm) 20 cm Proximal to Lateral Malleoli 48.3 Measurement (cm) 30 cm Proximal to Lateral Malleoli 55.5 Measurement (cm) 40 cm Proximal to Lateral Malleoli 50.6 Measurement (cm) 50 cm Proximal to Lateral Malleoli 0 Measurement (cm) 60 cm Proximal to Lateral Malleoli 0 Measurement (cm) Lower Extremity Measurement Total (cm) 247.3 Wound Problems/Impairments Impairments Problems/Impairmments Palpation Tenderness,Impaired Walking,Impaired Standing, Increased Edema,Lymphedema Present,Subjective C/O Pain, Impaired Self Care/Self Management Prognosis Rehab Potential Good Comment Signs and symptoms consistent with lipolymphedema with increased hyperflexibility (7/ 9 beighton scale) and increased tenderness to palpation in B lower legs with grainy, palpable nodules noted under the skin. Skilled therapy is indicated to reduce overall edema burden and pain and return pt to PLOF. Clinical Impression Consistent with Diagnosis Yes Consistent with with lipidema Short Term Goals Number of Weeks 2 Decrease Edema Yes: Minimal Fibrotic edema to B lower legs Decrease Subjective C/O Pain Yes: 10 at worst B LE Patient to Understand Lymphedema Yes Treatment and Exercises Decrease Girth Measurments by (cm) Yes: B LE total by 5 cm ea Alf Goals Number of Weeks 4 Decreased Palpation Tenderness Yes: 0/4 B lower legs Decrease Edema Yes: No fibrotic edema to B LE Decrease Subjective C/O Pain Yes: 05/24 B LE at worst Patient to be Ind w/ HEP Yes Patient to Adhere Lymphedema Precautions Yes Decrease Girth Measurments by (cm) Yes: B LE total by 15 cm ea Outpatient Therapy Plan of Care Treatment Plan May Include Therapeutic Exercise Including Home Yes Exercise Program Manual Therapy Techniques Yes Neuromuscular Re-education Yes Therapeutic Activities to Return to Yes Previous Functional/Work Level ADL/Self Care Education Yes Orthotics/Bracing/Splinting Yes Vasopneumatic Compression Pump Yes Manual Lymphatic Drainage Yes Eval/Re-Eval Yes Frequency Times per week 2 Duration Number of Weeks 4 Addendums This patient is a candidate for social No or vocational rehab? Patient/Guardian verbally acknowledges Yes understanding of treatment program and consents to further treatment? Patient/Guardian verbally acknowledges Yes understanding of diagnosis, prognosis and goals for treatment? Eval Complexity PT Charges 58021 - High Complexity PHYSICIAN CERTIFICATION: I certify the specified therapy services for [facility] are required, authorized, and reviewed every 30 days.
== END 2024-05-14 23:59 | disposition home or self-care (01) ==
LOC: PT 16:00
PROVIDERS: PCP Family Medicine; Visit Provider Internal Medicine
DX: I89.0 Lymphedema, not elsewhere classified (principal)
CPT/HCPCS: 97140; 97163

== ENCOUNTER 2024-06-06 16:00 | Outpatient (RCR) | payer OTHER, SELFPAY ==
--- NOTE | 2024-05-16 16:35 | HMH.RHREAS ---
Rehab Reassessment Rehab OP Re-assessment Start: 05/16/24 16:29 Freq: Status: Active Protocol: Document 05/16/24 16:29 LIZZY (Rec: 05/16/24 16:35 PHOGEORGE [id number]) E-signed By Josep Bowie, PT Rehab Re-assessment Subjective Subjective Pt reports her legs don't feel as heavy now and she does not have the pain that she was suffering from previously. She has compression garments that are difficult to get on, but help significantly with her edema and pain. Objective Objective Notes Circumferential Measurements: R LE total is 232.9 cm which is -15.8 cm since IE L LE total is 236.0 cm which is -11.3 cm since IE Pain: 0/10 at worst TTP: 0/4 B lower legs Assessment Progress Assessment Progressing as Expected Assessment Notes Pt has shown significant reduction of B LE edema based on circumferential measurements. She does continue to have increased fibrotic edema in B LE and some decreased ability to don clothing. Skilled therapy is indicated to reduce overall edema and return pt to PLOF. Patient goals met ST/4 LT Plan Plan Continue per initial POC. Frequency of Therapy 2 x/wk Duration of therapy 4 wks Time and Billing Re-Eval Time 11 Re-Eval Billing Units 1 Charge for PT reassessment? Yes PHYSICIAN CERTIFICATION: I certify the specified therapy services for Sarahy Denton are required, authorized, and reviewed every 30 days.
== END 2024-06-06 23:59 | disposition home or self-care (01) ==
LOC: PT 16:00
PROVIDERS: PCP Family Medicine; Visit Provider Internal Medicine
DX: I89.0 Lymphedema, not elsewhere classified (principal)
CPT/HCPCS: 97140; 97164

== ENCOUNTER 2024-06-24 08:10 | Outpatient (CLI) | payer OTHER, SELFPAY ==
[2024-06-24 09:37] LABS: Hepatitis C Ab Qual. W/ RFX NEGATIVE (Negative)
[2024-06-24 10:18] LABS: HIV Combo NEGATIVE (Negative)
[2024-06-24 19:11] LABS: RPR W/RFX Titers Nonreactive (Nonreactive)
[2024-06-25 06:09] LABS: Hepatitis B Surface Antigen Negative (Negative)
== END 2024-06-24 23:59 | disposition home or self-care (01) ==
LOC: LAB 08:11
PROVIDERS: PCP Internal Medicine; Visit Provider Obstetrics & Gynecology
DX: Z11.3 Encounter for screening for infections with a predominantly sexual mode of transmission (principal); Z01.419 Encounter for gynecological examination (general) (routine) without abnormal findings
CPT/HCPCS: 36415; 86592; 86803; 87340; 87389

== ENCOUNTER 2024-08-29 09:05 | Outpatient (CLI) | payer OTHER, SELFPAY ==
[2024-08-29 10:14] LABS: HCG,Quantitative 71 mIU/ml (0-5.42)
[2024-08-30 08:29] LABS: Progesterone 5.4 ng/mL (.)
== END 2024-08-29 23:59 | disposition home or self-care (01) ==
LOC: LAB 09:06
PROVIDERS: PCP Internal Medicine; Visit Provider Obstetrics & Gynecology
DX: Z32.01 Encounter for pregnancy test, result positive (principal)
CPT/HCPCS: 36415; 84144; 84702

== ENCOUNTER 2024-08-31 11:00 | Outpatient (CLI) | payer OTHER, SELFPAY ==
[2024-08-31 12:24] LABS: HCG,Quantitative 134 mIU/ml (0-5.42)
== END 2024-08-31 23:59 | disposition home or self-care (01) ==
LOC: LAB 11:00
PROVIDERS: PCP Internal Medicine; Visit Provider Obstetrics & Gynecology
DX: Z32.01 Encounter for pregnancy test, result positive (principal)
CPT/HCPCS: 36415; 84702

== ENCOUNTER 2024-09-12 13:07 | Outpatient (CLI) | payer OTHER, SELFPAY ==
[2024-09-12 14:17] LABS: HCG,Quantitative 2774 mIU/ml (0-5.42)
== END 2024-09-12 23:59 | disposition home or self-care (01) ==
LOC: LAB 13:08
PROVIDERS: PCP Internal Medicine; Visit Provider Obstetrics & Gynecology
DX: Z32.01 Encounter for pregnancy test, result positive (principal)
CPT/HCPCS: 36415; 84702

== ENCOUNTER 2024-09-19 07:16 | Outpatient (CLI) | payer OTHER, SELFPAY ==
--- NOTE | 2024-09-19 07:30 | US_ITS ---
PROCEDURE: US OB <= 14 WEEKS FETUS CLINICAL INDICATION: Dates/Viability COMPARISON: No exams were available for comparison FINDINGS: Transvaginal sonographic images of the pelvis were obtained. From her last menstrual period she is 7weeks 5days. The endometrium measures 1.64 cm There appears to be a collapsing gestational sac measuring 4.5 mm by 4.9 mm pole is not seen. This correlates to a gestational age of 4weeks 6days. heart tones are not seen Yolk sac is not seen. A small subchorionic hemorrhage is seen. The right ovary is seen and appears normal. The left ovary is seen and appears normal. There is no fluid in the cul-de-sac. IMPRESSION: 1. There appears to be a collapsing anechoic gestational sac within the uterine cavity. Embryo is not seen. Yolk sac is not seen. The endometrium is thickened. 2. Missed with products of conception within the uterine cavity. 3. Both ovaries are seen and appear normal. 4. No fluid in the cul-de-sac. Dictated by: Hieu Saini MD 09/20/2024 07:21 Hieu Saini MD in [facility] 09/20/2024 07:21
[2024-09-19 09:15] LABS: HCG,Quantitative 6043 mIU/ml (0-5.42)
== END 2024-09-19 23:59 | disposition home or self-care (01) ==
PROVIDERS: PCP Internal Medicine; Visit Provider Obstetrics & Gynecology
DX: O02.1 Missed abortion (principal); Z3A.01 Less than 8 weeks gestation of pregnancy
CPT/HCPCS: 36415; 76801; 84702

== ENCOUNTER 2024-09-26 10:25 | Outpatient (CLI) | payer OTHER, SELFPAY ==
[2024-09-26 11:34] LABS: HCG,Quantitative 9223 mIU/ml (0-5.42)
== END 2024-09-26 23:59 | disposition home or self-care (01) ==
LOC: LAB 10:26
PROVIDERS: PCP Internal Medicine; Visit Provider Obstetrics & Gynecology
DX: O36.80X0 Pregnancy with inconclusive fetal viability, not applicable or unspecified (principal)
CPT/HCPCS: 36415; 84702

== ENCOUNTER 2024-09-27 11:35 | Day surgery (SDC) | payer OTHER, SELFPAY ==
[2024-09-27] VITALS (9 sets, daily range): BP systolic 95–147; BP diastolic 66–79; PULSE 70–103; RESP 16–18; TEMP 36.1–36.7; O2SAT 99–100; BMI 45.6
--- NOTE | 2024-09-27 10:07 | US_ITS ---
PROCEDURE: US OB <= 14 WEEKS FETUS CLINICAL INDICATION: POSSIBLE MISCARRIAGE COMPARISON: US US OB <= 14 WEEKS FETUS from 09/19/2024 FINDINGS: Transvaginal sonographic images of the pelvis were obtained. From her last menstrual period she is 9weeks 6days. A pole is not seen. There is a gestational sac that measures 4.6 mm x 2.9 mm This correlates to a gestational age of 4weeks 6days. The sac is similar in size to the ultrasound last week and appears to be collapsing. Yolk sac is not seen. The endometrium is thickened measuring 17 mm. The right ovary is seen and appears normal. There is a 1.3 cm corpus luteum in the right ovary. The left ovary is seen and appears normal. There is no fluid in the cul-de-sac. IMPRESSION: 1. Anteverted uterus. There is a small collapsing gestational sac that has not changed in the last week. 2. The endometrium is hyperechoic, cystic and thickened. There is a small amount of active bleeding seen within the endometrium. 3. Both ovaries are seen and appear normal. There is a corpus luteum on the right ovary. No evidence of ectopic . 4. No fluid in the cul-de-sac. 5. Likely missed with retained products of conception. Dictated by: Hieu Saini MD 09/28/2024 08:54 Hieu Saini MD in [facility] 09/28/2024 08:54
[2024-09-27 10:20] LABS: HCG,Quantitative 9770 mIU/ml (0-5.42)
[2024-09-27] MEDS: CELECOXIB 100MG CAPSULE 400 MG PO (12:08)
[2024-09-27] MEDS: ACETAMINOPHEN 500MG TAB 1000 MG PO (12:09)
[2024-09-27] MEDS: GABAPENTIN 600MG TABLET 600 MG PO (12:09)
[2024-09-27 12:12] LABS: Basophils % 0.5 % (0.1-2.0); Eosinophils # 0.1 Kmm3 (0.0-0.4); Eosinophils % 1.2 % (0.1-12.0); Hematocrit 42.3 % (37.0-47.0); Hemoglobin 13.6 g/dL (12.2-16.2); Immature Granulocytes # 0.01 10^3uL; Immature Granulocytes % 0.2 %; Lymphocytes # 1.8 K/mm3 (0.7-4.5); Lymphocytes % 27.9 % (10-50); Mean Corpuscular HGB Conc 32.2 g/dL (31.8-35.4); Mean Corpuscular Hemoglobin 28.3 pg (27.0-31.2); Mean Corpuscular Volume 88.1 fl (81-99); Mean Platelet Volume 9.6 fl (7.4-10.4); Monocytes # 0.5 K/mm3 (0.1-1.0); Monocytes % 6.9 % (1.7-9.3); Neutrophils # 4.1 K/mm3 (1.8-7.8); Neutrophils % 63.3 % (37.0-80.0); Nucleated Red Blood Cells # 0 10^3/uL; Nucleated Red Blood Cells % 0 %; Platelet Count 290 K/mm3 (142-424); Red Cell Distribution Width 13.2 % (11.5-17.5); Red Cell Distribution Width-SD 42.7 fL; White Blood Count 6.5 K/mm3 (4.8-10.8)
--- NOTE | 2024-09-27 12:15 | P.PNANES_ITS ---
[facility] Disclaimer: The information contained in this section may have been updated after the patient was seen, as this information can be updated by other users. Medical History No significant past medical history Surgical History History of tympanostomy tube placement History of cholecystectomy Family History Father Hyperlipidemia Hypertension Mother Asthma Grandmother Diabetes Grandfather Stroke Grandmother Cancer renal cell Social History Smoking Status: Never smoker alcohol intake: never counseling provided: none substance use type: denies use current occupational status: employed Travel in the last 8 weeks?: None housing: house marital status: single Have you lived/traveled outside US in past 30 days?: No Contact w/someone who lives/traveled outside US past 30 days?: No Exposure to someone with infectious disease in past 14 days?: No Do you have a fever (greater than 100.4 F or 38 C)?: No Have you tested positive for COVID-19?: No Exposed to someone with COVID-19 in past 14 days?: No Do you have a sore throat?: No Do you have a cough?: No Do you have any weakness?: No Do you have any diarrhea?: No Are you experiencing any unusual bleeding?: No Do you have any muscle aches/pain?: No Do you have any abdominal pain?: No Are you experiencing loss of taste or smell?: No [facility] Anesthesia Checklist Patient Identification Patient Identification: Arm Band and Family Structural Data Admitted From: Inpatient Planned Operative Procedure/s: Exploratory lap. D&C. Consent for Planned Operative Procedure(s) Verified: Yes Verified Documents: Surgical Consent NPO Status Verified Time NPO: 00:00 Additional verifications Patient : No Anesthesia Reactions: Yes (PONV) Hx Blood Transfusions: No Blood Transfusion Reaction: No Cephalosporin Allergy: No Previous Colonoscopy: No Airway Assessment Mallampati Score:: Class II Dentition: Good Dentition Neurological Assessment Level of Consciousness: Appropriate and Follows Commands Hx Seizures: No Numbness or tingling in extremities: No Anesthesia Plan Anesthesia Risk discussed: Yes ASA Class: II Anesthesia Type: General
[2024-09-27 12:22] LABS: Alanine Aminotransferase 28 U/L (12-78); Albumin Level 4.4 g/dl (3.5-5.0); Albumin/Globulin Ratio 1.5 (1.1-1.8); Alkaline Phosphatase 111 U/L (38-126); Anion Gap 12.2 mEq/L (5-15); Aspartate Amino Transferase 35 U/L (14-36); Bilirubin,Total 0.7 mg/dl (0.2-1.3); Blood Urea Nitrogen 10 mg/dl (7-17); Calcium 9.1 mg/dl (8.4-10.2); Carbon Dioxide 21 mmol/L (22.0-30.0); Chloride 108 mmol/L (98-107); Creatinine Clearance Estimated 152 mL/min (50-200); Estimated Glomerular Filt Rate 124 ml/min (>60); GFR (African American) 150 ML/MIN (>60); Glucose 89 mg/dl (74-100); Potassium 4.2 mmoL/L (3.5-5.1); Sodium 137 mmol/L (136-145); Total Protein,Serum 7.4 g/dl (6.3-8.2)
[2024-09-27] MEDS: DOXYCYCLINE HYCLATE 200 MG in 0.9 % SODIUM CHLORIDE 250 ML 166.667 MG IV (12:35)
[2024-09-27] MEDS: BUPIVACAINE 0.5% 30ML VIAL 150 MG IJ ×2 (12:52→13:45)
--- NOTE | 2024-09-27 14:49 | P.OP_ITS ---
Date of procedure: 09/27/24 Pre-op Diagnosis:: 1. of a location Post-op Diagnosis:: 1. of a location 2. Tubal mass Procedure performed:: 1. Suction dilation and curettage 2. Diagnostic laparoscopy 3. Excision of right tubal mass 4. Chromopertubation Surgeon:: Sneha Kelley DO Labor Relations Manager(s):: Hua Alfaro MD SQL CONSULTANT:: Christian Mojica Anesthesia: GETA Estimated blood loss (mL): 10 Clinical Note:: Sarahy Denton is a 24-year-old G1, P0 who I have been following for of unknown location. Her beta hCGs have been rising. Since we cannot identify the location of the she was taken for a diagnostic laparoscopy with suction dilation and curettage. Medications: - Preoperative pain management with gabapentin, Tylenol, and celecoxib. - Preoperative antibiotics: Doxycycline. - Continue UTI antibiotics: Macrobid Operative findings:: 1. Laparoscopic exam revealed normal-appearing uterus and ovaries. Normal- appearing left fallopian tube. Cystic mass of the right fallopian tube. Liver inspected without any masses or abnormalities. Diaphragm inspected without any masses or abnormalities. Posterior cul-de-sac inspected and the bladder inspected without any masses or abnormalities. 2. Exam under anesthesia revealed a narrowed introitus with a very small nulliparous friable cervix 3. Chromopertubation revealed a patent right fallopian tube. Suspected proximal tubal occlusion from the left fallopian tube has no methylene blue mated into any portion of the tube Operative note:: The patient was taken to the operating room where general anesthesia was obtained and noted to be adequate. SCDs were placed for thromboembolism prophylaxis and found to be working. The patient was placed in the dorsal lithotomy position using yellowfin stirrups. Timeout verified the correct patient and procedure. The patient was prepped and draped in a usual sterile fashion. A catheter was used to drain her bladder. Weighted speculum was unable to be placed in her vagina secondary to a narrowed pubic arch with bony restrictions. A right angle retractor and [place] were used to visualize the cervix. Single-tooth tenaculum was placed on the cervix and Byron dilators were used to dilate the cervix to allow accommodation of a #7 rigid suction curette. The suction was gentle Anter started to the fundus until light resistance was met, suction was applied and the curette was twisted in a clockwise fashion until it was removed from the cervical os. This process was repeated until all products of conception were removed. Products were noted in the tubing system. Approximately sent to pathology for further evaluation. An acorn uterine manipulator was placed and my top gloves were removed. 10mL of Lidocaine with epinepherine was injected infraumbilically and a scalpel was used to make a 5 mm infraumbilical incision with the assistance from a hemostat. The skin was tented and Optiview blunt trocar was introduced into the abdomen in the usual fashion. CO2 gas was connected with an initial pressure of 14 mmHg noted. 2 additional attempts for umbilical entry were attempted without successful entry. 1 additional attempt at Razo's point after placement of an OG tube without entry into the abdomen. Assistance from Dr. Alfaro allowed entry at Razo's point with the Veress needle. Entry pressure of 7 noted. Pneumoperitoneum was created to a pressure of 15 mmHg. The laparoscopic camera was inserted and a quick survey of the abdomen revealed grossly normal anatomy. Inspection below the umbilicus was carefully undertaken and no injuries noted. The uterus appeared to be anteverted with a normal size shape and contour. The patient was placed in Trendelenburg. 10mLs of local anesthetic was injected and a 5mm incision was then made in the right lower quadrant with careful attention to avoid the rectus muscles and vasculature and under direct laparoscopic visualization a blunt trocar was introduced into the abdominal cavity. This process was repeated on the left side with a 12 mm port to allow for an Endo Catch bag. The fallopian tubes were identified on the cornu of the uterus and followed out to the ovaries which revealed grossly appearing anatomy on the patient's left. There was a cystic-appearing tubal mass on the patient's right fallopian tube. This appeared to be pedunculated. The LigaSure was used to easily transect the mass. It was placed in the Endo Catch bag and removed to be sent off for pathology evaluation. Transition to vaginal surgery and the acorn uterine manipulator was removed and a uterine manipulator was placed that would allow diet to be pushed through. Methylene blue dye was pushed through the uterus and the right fallopian tube was noted to be patent. The left fallopian tube was suspected to have a proximal tubal occlusion. Uterine manipulator was repositioned and continued occlusion noted. All instruments were removed vaginally. Attention was turned to the laparoscopic portion. Methylene blue was irrigated and suctioned out of the pelvis. Hemostasis was noted. Pneumoperitoneum reduced, and all ports removed. The 4 abdominal incisions were closed in a running fashion using 4-0 Monocryl. Dermabond was applied to each skin incision. All counts were correct x3, per nursing. The patient was ex tubated, stable, and transferred to the PACU. She will be discharged after meeting all DC criteria to include voiding, ambulating and tolerating PO independently. Condition: stable Disposition: same day Specimens:: 1. Endometrial curettings 2. Tubal mass Complications:: None
--- NOTE | 2024-09-27 14:52 | EXP.ANES.I ---
[facility] Anesthesia Record Part I Anesthesia Record I Intake, IV Amount: 1,450 Hydration: Adequate Estimated blood loss (mL): 15 Urine output (mL): 0 Blood Products used (#): none Blood Pressure: 129/79 SaO2: 100 Pulse Rate: 74 Airway Patency: Patent Respiratory Rate: 18 Temperature: 97 F Patient is:: Drowsy and Stable Stable to PACU at:: 14:40
--- NOTE | 2024-09-30 13:21 | P.PNANES_ITS ---
[facility] Anesthesia Record Part II Anesthesia Record Part II Discharge Time: 15:10 Destination: Obstetric PACU nurse assessment reviewed?: Yes Patient Condition:: Good Anesthesia Complications:: None Swallowing reflex intact?: Yes Airway Patency: Patent Cyanosis?: No Blood Pressure: 120/73 SaO2: 99 Respiratory Rate: 16 Pulse Rate: 80 Temperature: 97.0 F Mental Status: Alert & Oriented Pain level:: 0 Nausea and/or vomitting:: None Intake, IV Amount: 0 Hydration: Adequate
[2024-09-30 13:22] VITALS: BP 120/73; PULSE 80; RESP 16; TEMP 36.1; O2SAT 99
== END 2024-09-27 15:40 | disposition home or self-care (01) ==
PROVIDERS: PCP Internal Medicine; Visit Provider Obstetrics & Gynecology
PROC: (CPT 58350; principal; 2024-09-27 12:00)
DX: D28.2 Benign neoplasm of uterine tubes and ligaments (principal); N97.1 Female infertility of tubal origin; O36.80X0 Pregnancy with inconclusive fetal viability, not applicable or unspecified
CPT/HCPCS: 58350; 58662; 59820; 36415; 76801; 80053; 84702; 85025; 96374; C9144; J1100; J2250; J2405; J3010; J7120

== ENCOUNTER 2024-09-28 09:15 | Outpatient (CLI) | payer OTHER, SELFPAY ==
[2024-09-28 10:23] LABS: HCG,Quantitative 3166 mIU/ml (0-5.42)
== END 2024-09-28 23:59 | disposition home or self-care (01) ==
LOC: LAB 09:16
PROVIDERS: PCP Internal Medicine; Visit Provider Obstetrics & Gynecology
DX: O36.80X0 Pregnancy with inconclusive fetal viability, not applicable or unspecified (principal); O02.81 Inappropriate change in quantitative human chorionic gonadotropin (hCG) in early pregnancy
CPT/HCPCS: 36415; 84702; 86850

== ENCOUNTER 2024-10-04 12:45 | Outpatient (CLI) | payer OTHER, SELFPAY ==
[2024-10-04 14:38] LABS: HCG,Quantitative 119 mIU/ml (0-5.42)
== END 2024-10-04 23:59 | disposition home or self-care (01) ==
LOC: LAB 12:46
PROVIDERS: PCP Internal Medicine; Visit Provider Obstetrics & Gynecology
DX: O36.80X0 Pregnancy with inconclusive fetal viability, not applicable or unspecified (principal)
CPT/HCPCS: 36415; 84702

== ENCOUNTER 2024-10-08 12:35 | Outpatient (CLI) | payer OTHER, SELFPAY ==
[2024-10-08 14:00] LABS: HCG,Quantitative 29 mIU/ml (0-5.42)
== END 2024-10-08 23:59 | disposition home or self-care (01) ==
LOC: LAB 12:36
PROVIDERS: PCP Internal Medicine; Visit Provider Obstetrics & Gynecology
DX: O36.80X0 Pregnancy with inconclusive fetal viability, not applicable or unspecified (principal)
CPT/HCPCS: 36415; 84702

== ENCOUNTER 2024-10-15 12:38 | Outpatient (CLI) | payer OTHER, SELFPAY ==
[2024-10-15 14:15] LABS: HCG,Quantitative 5 mIU/ml (0-5.42)
== END 2024-10-15 23:59 | disposition home or self-care (01) ==
PROVIDERS: PCP Internal Medicine; Visit Provider Obstetrics & Gynecology
DX: O02.81 Inappropriate change in quantitative human chorionic gonadotropin (hCG) in early pregnancy (principal); O36.80X0 Pregnancy with inconclusive fetal viability, not applicable or unspecified; O03.9 Complete or unspecified spontaneous abortion without complication; Z3A.00 Weeks of gestation of pregnancy not specified
CPT/HCPCS: 36415; 84702

== ENCOUNTER 2024-10-22 12:32 | Outpatient (CLI) | payer OTHER, SELFPAY ==
[2024-10-22 14:07] LABS: HCG,Quantitative < 2 mIU/ml (0-5.42)
== END 2024-10-22 23:59 | disposition home or self-care (01) ==
LOC: LAB 12:32
PROVIDERS: PCP Internal Medicine; Visit Provider Obstetrics & Gynecology
DX: O36.80X0 Pregnancy with inconclusive fetal viability, not applicable or unspecified (principal); Z3A.00 Weeks of gestation of pregnancy not specified
CPT/HCPCS: 36415; 84702

== ENCOUNTER 2025-02-25 07:43 | Outpatient (CLI) | payer OTHER, SELFPAY ==
--- OUTSIDE RECORDS SUMMARY | 2023-08-30 09:45 | XMS_ITS ---
Author Organization [facility] Address [address] [place] [id number] Care Team Providers Care Sign Letterer Name Role Phone Uday Becker Primary Care Provider [phone] Calista Faria Unavailable [phone] Allergies No Known Allergies Results Component Value Reference Range Notes Influenza Screen (in house) Reviewed date:08/30/2023 02:47:16 PM Interpretation:Negative Performing Lab: Notes/Report: Negative results Neg CBC Fingerstick (in house) Reviewed date:08/30/2023 02:47:30 PM Interpretation:Negative Performing Lab: Notes/Report: Negative wbc 9.6 3.5 - 10 lym 23.5 15 - 50 mid 5.2 2 - 15 gran 71.3 35 - 80 rbc 4.75 3.5 - 5.5 hgb 14.1 11.5 - 16.5 hct 44.1 35 - 55 mcv 92.8 75 - 100 mch 29.7 25 - 35 mchc 31.9 31 - 38 plat 272 100 - 400 Covid test (in house) Reviewed date:08/30/2023 02:47:44 PM Interpretation:Negative Performing Lab: Notes/Report: Negative Result: Neg REASON FOR VISIT sinus congestion Medications Medication SIG (Take, Route, Frequency, Duration) Notes Start Date End Date Status Fexofenadine HCl 180 MG 1 tablet swallow whole with water; do not take with fruit juices. Orally Once a day; Duration: 30 day(s) 08/30/2023 Active Norelgestromin-Eth Estradiol 150-35 MCG/24HR as directed Transdermal once a week x 3 weeks and then off 1 week 03/10/2023 Active Singulair 10 MG 1 tab(s) orally once a day (in the evening); Duration: 30 day(s) Active Medrol 4 MG as directed orally 09/23/2022 Active Flonase Allergy Relief 50 MCG/ACT 1 spray in each nostril Nasally Once a day 08/30/2023 Active Problems Problem Type SNOMED Code ICD Code Onset Dates Problem Status W/U Status Risk Notes Problem Allergic rhinitis (48302166) Acute allergic rhinitis (J30.9) Active confirmed Vital Signs Blood pressure systolic 120 mm Hg 08/30/19 Blood pressure diastolic 72 mm Hg 024 Heart Rate 78 /min 08/30/2023 Height 68.50 in 08/30/2023 Weight 246 lbs 08/30/2023 BMI 36.86 kg/m2 08/30/2023 Encounters Encounter Location Date Provider Diagnosis [facility] [address] [facility] [address] [place], [place] [id number] 08/30/2023 Calista Faria Acute allergic rhini tis J30.9 Assessments Encounter Date Diagnosis (ICD Code) Assessment Notes Treatment Notes Treatment Clinical Notes Section Notes 08/30/2023 Acute allergic rhinitis (ICD-10 - J30.9) Plan Of Treatment Medication Medication Name Sig Start Date Stop Date Notes Fexofenadine HCl 180 MG 1 tablet swallow whole with water; do not take with fruit juices. Orally Once a day; Duration: 30 day(s) 08/30/2023 Singulair 10 MG 1 tab(s) orally once a day (in the evening); Duration: 30 day(s) Medrol 4 MG as directed orally 09/23/2022 Flonase Allergy Relief 50 MCG/ACT 1 spray in each nostril Nasally Once a day 08/30/2023 Radha Allergy 60 MG 1 tab(s) orally 2 times a day Next Appt Details Follow Up: prn, Reason: Progress Notes * CHRISTY DENTONDOB: 2 (24 yo F)Acc No.[id number]:08/30/2023 Progress Notes Patient: CHRISTY VERAS Provider: MARGOT Perry :2000 A ge:23 Y S ex:Female Date:08/30/2023 Address:[facility] [address], [place], [id number] Pcp:Uday Becker Subjective: * Chief Complaints: * 1 . Sinus congestion. * HPI: E NT/respiratory: 23 year old female presents with c/o cough off and on. c/o nasal congestion r unny nose, green drainage. c/o facial pain/pressure b ilateral, left more than right. c/o headache p ressure like sensation. Denies : sore throat. D enies : Fever. D enies : ear pain. * ROS: D ERMATOLOGY: no R tip. n o H deepak. G ASTROENTEROLOGY: no N ausea. n o V omiting. U ROLOGY: no D ifficulty urinating. n o B lood in urine. * Medical History: S easonal Allergies, COVID 19 Vaccine, Moderna, October 2020, COVID 19 Vaccine, Moderna. * Surgical History: E ar Tubes 2002. * Hospitalization/Major Diagno stic Procedure: C ontusion of LT Arm- [facility] 08/02/2008, Fever, Headache- [place] [facility] 06/27/2010, Rolled Right Ankle- [facility] 03/01/2015, Acute Sinusitis- [facility] 11/24/2020. * Family History: F ather: alive 64 yrs. M other: alive 53 yrs. P aternal Grand Father: alive. P aternal Grand Mother: . M aternal Grand Father: alive. M aternal Grand Mother: alive.?1 brother(s) . . * Social History: C URRENT TOBACCO USE S moking Status: Patient does NOT smoke. C affeine: yes, frequency:some. Home smoke detector use: yes. Marital Status: Single. Past smoking status: no, Smoking status: Does not smoke. * Medications: T aking Radha Allergy 60 MG Tablet 1 tab(s) orally 2 times a day , Taking Norelgestromin-Eth Estradiol 150-35 MCG/24HR Patch Weekly as directed Transdermal once a week x 3 weeks and then off 1 week , Not-Taking Singulair 10 MG Tablet 1 tab(s) orally once a day (in the evening) , Not-Taking Medrol 4 MG Tablet Therapy Pack as directed orally , Medication List reviewed and reconciled with the patient * Allergies: N .K.D.A. Objective: * Vitals: W t:246, Temp:98, BP:120/72, HR:78, Nurse:dm, Ht: 68.50, BMI:36.86. * Examination: E NT/Respiratory: General Appearance: N AD. E ars: a uditory canals normal bilaterally, TM's WNL. N ose : turbinates red, congested. S inuses : tender maxillary sinuses bilaterally. O ral cavity : n o erythema or exudate seen on pharynx. Neck : n o cervical lymphadenopathy. H eart : R RR, normal S1 S2, no murmurs. L ungs: c lear to auscultation bilaterally. Assessment: * Assessment: 1. A phuc allergic rhinitis - J30.9 (Primary) Plan: * Treatment: Value Reference Range r esults Neg * Vicky Mcgee 08/30/2023 2:17:25 PM > , Provider reviewed results while patient in office. ?LAB: CBC Fingerstick (in house) (Collection Date & Time - 08/30/2023)? Negative* Value Reference Range w bc 9.6 3.5 - 10 * l ym 23.5 15 - 50 * m id 5.2 2 - 15 * g ran 71.3 35 - 80 * r bc 4.75 3.5 - 5.5 * h gb 14.1 11.5 - 16.5 * h ct 44.1 35 - 55 * m cv 92.8 75 - 100 * m ch 29.7 25 - 35 * m chc 31.9 31 - 38 * p lat 272 100 - 400 * Vicky Mcgee 08/30/2023 2:19:35 PM > , Provider reviewed results while patient in office. ?LAB: Covid test (in house) (Collection Date & Time - 08/30/2023)?Negative* Value Reference Range R esult: Neg * Vicky Mcgee 08/30/2023 2:17:05 PM > , Provider reviewed results while patient in office. * Procedure Codes: 3 6416 CAPILLARY BLOOD DRAW, 61813 CBC WITH AUTO DIFF, 60454 Flu Test- Nasal Swab, Modifiers: QW , 02366 COVID TEST IN HOUSE, Modifiers: QW * Follow Up: p rn * Images: Billing Information: * Visit Code: 41050 Office Visit, Est Pt., Level 3. * Procedure Codes: 37418 CAPILLARY BLOOD DRAW. 03127 CBC WITH AUTO DIFF. 54922 Flu Test- Nasal Swab. Modifiers: QW 55226 COVID TEST IN HOUSE. Modifiers: QW * Electronic signature of MARGOT Stoner on 02/25/2025 at 07:48 AM EDT Sign off status: Pending * Provider: MARGOT Perry Date: 0 08/30/2023 Generated for Fatou laurent/Aj/Laura on: 1 07:48 AM EDT History and Physical Notes * HPI (History of Present Illness) Category Sub-Category Detail Notes Category Not es ENT/respiratory sore throat facial pain/pressure bilateral, left mor e than right ear pain cough off and on Fever headache pressure like sensat ion nasal congestion runny nose, green dr ramirez Examination Category Sub-Category Detail Notes Category Not es ENT/Respiratory Oral cavity : no erythema or exudate s een on pharynx Sinuses : tender maxillary sin uses bilaterally Ears: auditory canals norm al bilaterally, TM's WNL Neck : no cervical lymphade nopathy Heart : RRR, normal S1 S2, n o murmurs Lungs: clear to auscultatio n bilaterally General Appearance: NAD Nose : turbinates red, alexandra ested
--- OUTSIDE RECORDS SUMMARY | 2023-09-05 06:30 | XMS_ITS ---
Author Organization [facility] Address [address] [facility] [address] [place] [id number] Care Team Providers Care End Frazer Name Role Phone Uday Bekcer Primary Care Provider [phone] Carolee Gonzalez [phone] REASON FOR VISIT ears hurting Encounters Encounter Location Date Provider Diagnosis [facility] [address] [facility] [address] [place] [phone] 09/05/2023 Carolee Gonzalez Plan Of Treatment No Information Progress Notes * CHRISTY DENTONDOB: 2 (24 yo F)Acc No.[id number]:09/05/2023 Progress Notes Patient: CHRISTY VERAS Provider: BLANE Marcus :2000 A ge:23 Y S ex:Female Date:09/05/2023 Address:[address] [address], [id number] Pcp:Uday Becker Subjective: * Chief Complaints: * 1 . Ears hurting. * Medical History: Objective: * Vitals: Assessment: Plan: * Treatment: * Images: Billing Information: * Visit Code: * Procedure Codes: * Electronic signature of Radha Gonzalez APRN on 02/25/2025 at 07:48 AM EDT Sign off status: Pending * Provider: BLANE Marcus Date: 0 09/05/2023 Generated for Fatou laurent/Aj/Hamzahitting on: 1 07:48 AM EDT
--- OUTSIDE RECORDS SUMMARY | 2025-02-25 07:48 | XMS_ITS | Patient Health Record ---
[facility] [address] [facility] [address] [place] [id number] Care Team Providers Care Business Support Coordinator Name Role Phone Uday Becker Primary Care Provider Allergies No Known Allergies Reason For Referral No Information Medications Medication SIG (Take, Route, Frequency, Duration) Notes Start Date End Date Status Fexofenadine HCl 180 MG 1 tablet swallow whole with water; do not take with fruit juices. Orally Once a day; Duration: 30 day(s) 08/30/2023 Active Singulair 10 MG 1 tab(s) orally once a day (in the evening); Duration: 30 day(s) Active Medrol 4 MG as directed orally 09/23/2022 Active Flonase Allergy Relief 50 MCG/ACT 1 spray in each nostril Nasally Once a day 08/30/2023 Active Zafemy 150-35 MCG/24HR DIRECTED TRANS DERMALLY ONE PATCH PER WEEK FOR 3 WEEKS THEN 1 WEEK OFF; Duration: 28 Active Immunizations Vaccine Route Administration Date Status Comme nts COVID 19 Moderna Unknown 09/23/2020 Administered COVID 19 Moderna Unknown 10/21/2020 Administered Fluzone Quad (6months&older) IM Intramuscular 02/24/2015 Administered Fluzone Quad (6months&older) IM Intramuscular 03/26/2016 Administered Fluzone Quad (6months&older) IM Intramuscular 03/06/2017 Administered Fluzone Quad (6months&older) IM Intramuscular 02/23/2018 Administered Fluzone Quad (6months&older) IM Intramuscular 02/21/2019 Administered Fluzone Quad (6months&older) IM Intramuscular 03/05/2020 Administered Hep A- Pediatric IM Intramuscular 07/12/2017 Administered Hep A- Pediatric IM Intramuscular 01/09/2018 Administered IPV IM Intramuscular 08/29/2005 Administered Menactra IM Intramuscular 11/30/2012 Administered Menactra IM Intramuscular 01/09/2018 Administered MMR SC Subcutaneous 08/29/2005 Administered Tetanus Dtap-Daptacel (under 7yrs) IM Intramuscular 08/29/2005 Administered Tetanus Tdap-Adacel (over 7yrs) IM Intramuscular 11/30/2012 Administered Varivax SC Subcutaneous 11/30/2012 Administered xFluzone (6mos and older)-trivalent IM Intramuscular 02/24/2011 Administered xFluzone (6mos and older)-trivalent IM Intramuscular 03/10/2012 Administered xFluzone (6mos and older)-trivalent IM Intramuscular 03/11/2013 Administered xFluzone (6mos and older)-trivalent IM Intramuscular 02/28/2014 Administered Problems Problem Type SNOMED Code ICD Code Onset Dates Problem Status W/U Status Risk Notes Problem Streptococcal sore throat (disorder) (12606412) Strep pharyngitis (J02.0) Active confirmed Problem Cough (26796935) Cough (R05) Active confirmed Problem Cholelithiasis AND cholecystitis without obstruction (99947379) Calculus of gallbladder with chronic cholecystitis without obstruction (K80.10) Active confirmed Problem Acute maxillary sinusitis (44539904) Acute maxillary sinusitis, recurrence not specified (J01.00) Active confirmed Problem Chronic fatigue syndrome (10388998) Chronic fatigue (R53.82) Active confirmed Problem Chronic rhinitis (54319842) Rhinitis, unspecified type (J31.0) Active confirmed Problem Morbid obesity (681256106) Severe obesity (BMI >= 40) (E66.01) Active confirmed Problem Obesity (160104706) Obesity, pediatric (E66.9) Active confirmed Problem Raynaud's disease (848899098) Raynaud's disease without gangrene (I73.00) Active confirmed Problem Abnormal uterine bleeding (49626290013579) Abnormal uterine bleeding (AUB) (N93.9) Active confirmed Problem Allergic rhinitis (85483500) Acute allergic rhinitis (J30.9) Active confirmed Plan Of Treatment No Information Insurance Providers Payer Name Payer Address Payer Phone Subscriber Number Group Number Insured Name Patient Relationship to Insured Coverage Start Date Coverage End Date [facility] [id number] [place] [phone] [id number] [place]BARBARA Child - Insured has Financial Responsibility Medications Administered Medication Instructions Date of Administration Dosage Notes Dexamethasone 12/15/2021 1 mL Medical (General) History Medical History History ICD Code Seasonal Allergies COVID 19 Vaccine, Moderna, October 2020 COVID 19 Vaccine, Moderna Surgical History Surgery Date(Month/Year) Ear Tubes 2002 Hospitalization History Reason Date(Month/Year) Contusion of LT Arm- [facility] 08/02/2008 Fever, Headache- [place] [facility] 06/27/19 11 Rolled Right Ankle- [facility] 03/01/2015 Acute Sinusitis- [facility] [place] 11/24/2020
== END 2025-02-25 23:59 | disposition home or self-care (01) ==
PROVIDERS: PCP Internal Medicine; Visit Provider Obstetrics & Gynecology
DX: Z34.90 Encounter for supervision of normal pregnancy, unspecified, unspecified trimester (principal); N92.6 Irregular menstruation, unspecified; Z3A.00 Weeks of gestation of pregnancy not specified
CPT/HCPCS: 36415; 84144; 84702

== ENCOUNTER 2025-03-13 07:29 | Outpatient (CLI) | payer OTHER, SELFPAY ==
--- NOTE | 2025-03-13 08:00 | US_ITS ---
PROCEDURE: US TRANSVAGINAL CLINICAL INDICATION: AUB COMPARISON: No exams were available for comparison FINDINGS: Transvaginal sonographic images of the pelvis were obtained. UTERUS: 5.6cm x 3.7 cmx 2.8 cm anteverted with a combined endometrial thickness of 4mm. LEFT OVARY: 2.5 cmx1.5 cmx0.9cm with a volume of 1.9ml. There are several small peripheral follicles. RIGHT OVARY: 3.8 cmx 2.0cmx1.4cm with a volume of 5.5ml. There are multiple small peripheral follicles giving the ovary a polycystic appearance. There is a dominant follicle measuring 1.1 cm. Both ovaries are seen and appear normal. Doppler flow to both ovaries are seen. There is no fluid in the cul-de-sac. IMPRESSION: 1. Anteverted uterus normal in shape and size. The endometrium is normal measuring 4 mm. 2. Both ovaries are seen and appear normal. They both contain several small follicles. The right ovary has polycystic appearance. 3. No fluid in the cul-de-sac. Dictated by: Hieu Saini MD 03/13/2025 13:05 Hieu Saini MD in [facility] 03/13/2025 13:05
[2025-03-13 08:47] LABS: Thyroid Stimulating Hormone 0.92 uIU/mL (0.465-4.68)
[2025-03-13 10:07] LABS: Hemoglobin A1C 5.2 % (4.0-6.0)
[2025-03-14 05:21] LABS: Insulin Level Total 10.4 uIU/mL (2.6-24.9)
[2025-03-14 08:52] LABS: FSH 6.1 mIU/mL (.); Testosterone,Total 27 ng/dL (13-71)
== END 2025-03-13 23:59 | disposition home or self-care (01) ==
LOC: RAD 07:30
PROVIDERS: PCP Internal Medicine; Visit Provider Obstetrics & Gynecology
DX: E28.2 Polycystic ovarian syndrome (principal); N85.4 Malposition of uterus; E66.01 Morbid (severe) obesity due to excess calories
CPT/HCPCS: 36415; 76830; 82627; 82670; 83001; 83036; 83498; 83525; 84144; 84146; 84403; 84443

== ENCOUNTER 2025-04-14 10:01 | Outpatient (CLI) | payer OTHER, SELFPAY | END 2025-04-14 23:59 | disposition home or self-care (01) | LOC: LAB 10:02 | PROVIDERS: PCP Internal Medicine; Visit Provider Obstetrics & Gynecology | DX: N93.9 Abnormal uterine and vaginal bleeding, unspecified (principal); Z87.59 Personal history of other complications of pregnancy, childbirth and the puerperium | CPT/HCPCS: 36415; 84144; 84702 ==

== ENCOUNTER 2025-04-17 10:03 | Outpatient (CLI) | payer OTHER, SELFPAY | END 2025-04-17 23:59 | disposition home or self-care (01) | LOC: LAB 10:04 | PROVIDERS: PCP Internal Medicine; Visit Provider Obstetrics & Gynecology | DX: Z87.59 Personal history of other complications of pregnancy, childbirth and the puerperium (principal) | CPT/HCPCS: 36415; 84702 ==

== ENCOUNTER 2025-04-29 11:14 | Outpatient (CLI) | payer OTHER, SELFPAY ==
--- NOTE | 2025-04-29 11:00 | US_ITS ---
PROCEDURE: US OB TRANSVAGINAL CLINICAL INDICATION: Viability COMPARISON: US US OB <= 14 WEEKS FETUS from 09/19/2024 US US OB <= 14 WEEKS FETUS from 09/27/2024 US US TRANSVAGINAL from 03/13/2025 FINDINGS: Transvaginal sonographic images of the pelvis were obtained. Her last menstrual period is unknown. An intrauterine gestational sac is present with a pole with a crown-rump length of 0.98cm This correlates to a gestational age of 7weeks 1day. JENNY will be 12/15/2025 heart tones are present with an FHR of 152bpm. Yolk sac is noted. The yolk sac measures 6.7 mmmm. The right ovary is seen and appears normal. The left ovary is seen and appears normal. There is no fluid in the cul-de-sac. IMPRESSION: 1. Viable embryo within the uterine cavity. Cardiac activity is seen. 2. The embryo measures 7 weeks 1 day and JENNY will be 12/15/2025. 3. Both ovaries are seen and appear normal. 4. No fluid in the cul-de-sac. Dictated by: Hieu Saini MD 04/29/2025 13:38 Hieu Saini MD in [place] 04/29/2025 13:38
== END 2025-04-29 23:59 | disposition home or self-care (01) ==
LOC: RAD 11:15
PROVIDERS: PCP Internal Medicine; Visit Provider Obstetrics & Gynecology
DX: Z34.91 Encounter for supervision of normal pregnancy, unspecified, first trimester (principal); Z87.59 Personal history of other complications of pregnancy, childbirth and the puerperium; Z3A.01 Less than 8 weeks gestation of pregnancy
CPT/HCPCS: 76817; 87491; 87591

== ENCOUNTER 2025-04-30 08:08 | Outpatient (CLI) | payer OTHER, SELFPAY ==
[2025-04-30 08:42] LABS: Hematocrit 44.4 % (37.0-47.0); Hemoglobin 14.3 g/dL (12.2-16.2); Immature Granulocytes % 0.2 %; Mean Corpuscular HGB Conc 32.2 g/dL (31.8-35.4); Mean Corpuscular Hemoglobin 28.5 pg (27.0-31.2); Mean Corpuscular Volume 88.4 fl (81-99); Nucleated Red Blood Cells % 0 %; Platelet Count 296 K/mm3 (142-424); Red Blood Count 5.02 M/mm3 (4.20-5.40); Red Cell Distribution Width-SD 43.9 fL; White Blood Count 5.6 K/mm3 (4.8-10.8)
[2025-04-30 10:09] LABS: Hepatitis C Ab Qual. W/ RFX NEGATIVE (Negative)
[2025-04-30 10:55] LABS: RPR W/RFX Titers Nonreactive (Nonreactive)
[2025-05-01 06:15] LABS: Rubella Antibodies, IgG 1.28 index (Immune >0.99)
[2025-05-01 09:18] LABS: Hepatitis B Surface Antigen Negative (Negative)
== END 2025-04-30 23:59 | disposition home or self-care (01) ==
LOC: LAB 08:09
PROVIDERS: PCP Internal Medicine; Visit Provider Obstetrics & Gynecology
DX: O09.291 Supervision of pregnancy with other poor reproductive or obstetric history, first trimester (principal); Z3A.00 Weeks of gestation of pregnancy not specified
CPT/HCPCS: 36415; 85025; 86592; 86762; 86787; 86803; 86850; 87340; 87389; 87491; 87591